=== PATIENT | female | born 1980 | race African-American/Black ===

== ENCOUNTER 2020-01-01 07:50 | Outpatient (CLI) | payer OTHER, SELFPAY ==
[2020-01-01 08:31] LABS: Eosinophils Absolute Auto 0.1 K/mm3 (0-0.3); Eosinophils Percent Auto 3.1 % (0-4.4); Hematocrit 40.7 % (37.0-47.0); Hemoglobin 13.8 g/dL (12.0-15.0); Immature Granulocyte Absolute 0.03 K/mm3 (0.00-0.031); Immature Granulocyte Percent A 0.7 % (0-0.5); Lymphocytes Absolute Auto 2.22 K/mm3 (0.9-3.2); Lymphocytes Percent Auto 53.6 % (18.3-44.2); Mean Corpuscular HGB Conc 33.9 g/dl (32-36); Mean Corpuscular Hemoglobin 31.7 pg (26-34); Mean Corpuscular Volume 93.3 fl (80-100); Mean Platelet Volume 9.8 fl (7.4-10.4); Monocytes Absolute Auto 0.3 K/mm3 (0.1-0.6); Monocytes Percent Auto 7.7 % (2.6-8.5); Neutrophils Absolute Auto 1.4 K/mm3 (1.3-6.7); Neutrophils Percent Auto 33.9 % (45.5-73.1); Platelet Count Result 244 k/mm3 (150-375); Red Blood Count 4.36 M/mm3 (4.2-5.4); Red Cell Distribution Width 13.3 % (11.5-14.5); White Blood Count 4.1 K/mm3 (4.5-10.0)
[2020-01-01 08:34] LABS: Add Urine Microscopic? YES; Appearance Urine Clear (Clear); Bilirubin Urine Negative (Negative); Blood Urine Negative (Negative); Color Urine Yellow (Yellow); Glucose Urine UA Negative (Negative); Ketones Urine Trace mg/dL (Negative); Leukocyte Esterase Ur Negative LEU/UL (NEGATIVE); Mucus Urine Heavy /lpf; Nitrate Urine Negative (Negative); Protein Urine Negative (Negative); RBC Urine 0-2 /hpf (0-2); Specific Grav Ur 1.029 (1.001-1.035); Squamous Epithelial Cell Urine Many /hpf (Few); WBC Urine 0-3 /hpf (0-3)
[2020-01-01 08:53] LABS: Alanine Aminotransferase 12 U/L (4-35); Albumin Level 4.4 g/dL (3.5-5.1); Alkaline Phosphatase 49 U/L (38-126); Aspartate Amino Transferase 23 U/L (14-36); Bilirubin,Total 0.6 mg/dL (0.2-1.3); Blood Urea Nitrogen 10 mg/dL (7-17); Calcium 9.9 mg/dL (8.4-10.2); Carbon Dioxide 26 mmol/L (22-30); Chloride 107 mmol/L (98-107); Cholesterol 233 mg/dL (0-200); Estimated Glomerular Filt Rate > 60; Glucose 97 mg/dL (65-105); HDL Direct 52 mg/dL; Sodium 138 mmol/L (137-145); Triglycerides 48 mg/dL (<150); Uric Acid 3.9 mg/dL (2.5-7.5)
[2020-01-01 08:54] LABS: LDL Cholesterol Direct 150 mg/dL
[2020-01-01 09:00] LABS: Erythrocyte Sedimentation Rate 16 mm/hr (0-20)
[2020-01-01 09:05] LABS: Complement C3 97 mg/dL (88-165); Immunoglobulin A 102 mg/dL (70-400); Rheumatoid Factor < 8.6 IU/ML (<12)
[2020-01-01 09:12] LABS: Thyroid Stimulating Hormone 0.488 uIU/mL (0.465-4.680)
[2020-01-01 09:17] LABS: CRP < 0.5 mg/dL (<1.0); Creatine Kinase 125 U/L (30-135)
[2020-01-01 09:45] LABS: Free T4 Free Thyroxine 0.95 ng/mL (0.78-2.19); Vitamin D 25 Hydroxy 47.8 ng/mL
[2020-01-01 10:00] LABS: Hepatitis B Surface Antigen Negative (Negative)
[2020-01-01 10:13] LABS: Total Triiodothyronine (T3) 1.09 NG/ML (0.97-1.69)
[2020-01-01 10:17] LABS: Hepatitis C Virus Antibody Negative (Negative)
[2020-01-04 01:37] LABS: Anti Cyclic Citrullinated Pept <16 Units (<20); Complement Total CH50 54 U/mL (31-60); Histone Antibody <1.0 U (<1.0); Scleroderma 70 Antibody <1.0
[2020-01-04 08:42] LABS: Chromatin Antibody <1.0; RNP Antibodies <1.0; SS-A <1.0; SS-B <1.0
== END 2020-01-01 07:51 | disposition home or self-care (01) ==
PROVIDERS: PCP Family Medicine; Visit Provider Family Medicine
DX: Z00.00 Encounter for general adult medical examination without abnormal findings (principal); M25.50 Pain in unspecified joint; Z13.0 Encounter for screening for diseases of the blood and blood-forming organs and certain disorders involving the immune mechanism; Z13.6 Encounter for screening for cardiovascular disorders; Z13.220 Encounter for screening for lipoid disorders; Z13.29 Encounter for screening for other suspected endocrine disorder; E55.9 Vitamin D deficiency, unspecified
CPT/HCPCS: 36415; 80053; 80061; 81001; 82306; 82550; 82784; 83516; 84439; 84443; 84480; 84550; 85025; 85652; 86038; 86140; 86160; 86162; 86200; 86235; 86430; 86803; 87340

== ENCOUNTER 2020-05-03 09:58 | Outpatient (CLI) | payer OTHER, SELFPAY ==
--- NOTE | ~2020-05-03 | XR_ITS ---
XR abdomen/kub 1V 05/03/2020 10:33 Indication: Generalized abdominal pain Procedure: Supine view of abdomen Comparison: No prior studies for comparison. Findings: Bowel gas pattern is nonobstructive. There are bilateral renal stones. Calcifications in th e pelvis are believed to be phleboliths. There are surgical clips in the pelvis, possibly from tubal ligation procedure. No acute osseous abnormality. Impression: 1: Bilateral nephrolithiasis. Reviewed, dictated and finalized at location B. Impression: 1: Bilateral nephrolithiasis.
[2020-05-03 10:40] LABS: Basophils Percent Auto 0.6 % (0.2-1.2); Eosinophils Absolute Auto 0.2 K/mm3 (0-0.3); Eosinophils Percent Auto 3.2 % (0-4.4); Hematocrit 40.4 % (37.0-47.0); Hemoglobin 13.6 g/dL (12.0-15.0); Lymphocytes Absolute Auto 2.88 K/mm3 (0.9-3.2); Lymphocytes Percent Auto 54.3 % (18.3-44.2); Mean Corpuscular HGB Conc 33.7 g/dl (32-36); Mean Corpuscular Hemoglobin 32.2 pg (26-34); Mean Corpuscular Volume 95.5 fl (80-100); Mean Platelet Volume 9.9 fl (7.4-10.4); Monocytes Absolute Auto 0.4 K/mm3 (0.1-0.6); Monocytes Percent Auto 6.8 % (2.6-8.5); Neutrophils Absolute Auto 1.9 K/mm3 (1.3-6.7); Neutrophils Percent Auto 35.1 % (45.5-73.1); Platelet Count Result 221 k/mm3 (150-375); Red Blood Count 4.23 M/mm3 (4.2-5.4); Red Cell Distribution Width 13.2 % (11.5-14.5); White Blood Count 5.3 K/mm3 (4.5-10.0)
[2020-05-03 10:51] LABS: Alanine Aminotransferase 9 U/L (4-35); Albumin Level 4.5 g/dL (3.5-5.1); Alkaline Phosphatase 43 U/L (38-126); Amylase 102 U/L (30-110); Anion Gap 6 mmol/L (8-16); Aspartate Amino Transferase 17 U/L (14-36); Bilirubin,Total 0.2 mg/dL (0.2-1.3); Blood Urea Nitrogen 9 mg/dL (7-17); Calcium 9.9 mg/dL (8.4-10.2); Carbon Dioxide 27 mmol/L (22-30); Chloride 105 mmol/L (98-107); Estimated Glomerular Filt Rate > 60; Glucose 97 mg/dL (65-105); Lipase 48 U/L (23-300); Potassium 4.3 mmol/L (3.4-5.0); Sodium 138 mmol/L (137-145)
== END 2020-05-03 09:59 | disposition home or self-care (01) ==
PROVIDERS: PCP Family Medicine; Visit Provider Nurse Practitioner
DX: R10.9 Unspecified abdominal pain (principal); R32 Unspecified urinary incontinence
CPT/HCPCS: 36415; 74018; 80053; 82150; 83690; 85025

== ENCOUNTER 2020-05-26 09:58 | Outpatient (CLI) | payer OTHER, SELFPAY ==
--- NOTE | ~2020-05-26 | CT_ITS ---
EXAMINATION: CT abdomen pelvis wo con DATE: 05/26/2020 11:21 INDICATION: Nephrolithiasis TECHNIQUE: Computed tomography (CT) of the abdomen and pelvis was performed without intravenous contr ast. The dose-length product was 169.66 mGy-cm. Automated exposure control and iterative reconstructi on technique were employed. COMPARISON: None. FINDINGS: Lung bases are unremarkable. Heart size normal. No significant pleural or pericardial effus ion. There is atherosclerosis of the aorta. Nonobstructive bowel gas pattern with moderate colonic fe nain loading. No renal stones or hydronephrosis. Bladder is unremarkable. The ureters are difficult to visualize due to lack of intraperitoneal fat and contrast. No definite ureteral stone is seen. The liver, spleen, pancreas, adrenal glands are unremarkable. Gallbladder is present. No free air. No acute osseous abnormality. IMPRESSION: 1. No acute abdominal abnormality. Reviewed, dictated and finalized at location A.
== END 2020-05-26 09:59 | disposition home or self-care (01) ==
PROVIDERS: PCP Family Medicine; Visit Provider Family Medicine
DX: N20.0 Calculus of kidney (principal)
CPT/HCPCS: 74176

== ENCOUNTER 2021-01-01 08:55 | Outpatient (CLI) | payer OTHER, SELFPAY ==
[2021-01-01 09:42] LABS: Basophils Percent Auto 0.4 % (0.2-1.2); Eosinophils Absolute Auto 0.2 K/mm3 (0-0.3); Eosinophils Percent Auto 2.4 % (0-4.4); Hematocrit 43.2 % (37.0-47.0); Hemoglobin 14.6 g/dL (12.0-15.0); Immature Granulocyte Absolute 0.01 K/mm3 (0.00-0.031); Immature Granulocyte Percent A 0.1 % (0-0.5); Lymphocytes Absolute Auto 3.87 K/mm3 (0.9-3.2); Lymphocytes Percent Auto 54.7 % (18.3-44.2); Mean Corpuscular HGB Conc 33.8 g/dl (32-36); Mean Corpuscular Hemoglobin 32.7 pg (26-34); Mean Corpuscular Volume 96.6 fl (80-100); Mean Platelet Volume 9.4 fl (7.4-10.4); Monocytes Absolute Auto 0.6 K/mm3 (0.1-0.6); Monocytes Percent Auto 7.9 % (2.6-8.5); Neutrophils Absolute Auto 2.4 K/mm3 (1.3-6.7); Neutrophils Percent Auto 34.5 % (45.5-73.1); Platelet Count Result 288 k/mm3 (150-375); Red Blood Count 4.47 M/mm3 (4.2-5.4); Red Cell Distribution Width 13.6 % (11.5-14.5); White Blood Count 7.1 K/mm3 (4.5-10.0)
[2021-01-01 10:42] LABS: Creatinine Urine 189.1 mg/dL
[2021-01-01 10:46] LABS: MALB Creatinine Ratio 3.5 mg/g (0-30); Microalbumin Urine Random 6.6 mg/L (0-16.7)
[2021-01-01 11:00] LABS: Free T4 Free Thyroxine 1.01 ng/mL (0.78-2.19); Vitamin D 25 Hydroxy 33.3 ng/mL
[2021-01-01 13:55] LABS: Alanine Aminotransferase 25 U/L (4-35); Albumin Level 4.6 g/dL (3.5-5.1); Alkaline Phosphatase 44 U/L (38-126); Anion Gap 8 mmol/L (8-16); Aspartate Amino Transferase 29 U/L (14-36); Bilirubin,Total 0.5 mg/dL (0.2-1.3); Blood Urea Nitrogen 14 mg/dL (7-17); Calcium 10.6 mg/dL (8.4-10.2); Carbon Dioxide 27 mmol/L (22-30); Chloride 107 mmol/L (98-107); Cholesterol 239 mg/dL (0-200); Estimated Glomerular Filt Rate > 60; Glucose 98 mg/dL (65-105); HDL Direct 47 mg/dL; Potassium 3.7 mmol/L (3.4-5.0); Sodium 142 mmol/L (137-145); Triglycerides 127 mg/dL (<150)
[2021-01-01 14:22] LABS: LDL Cholesterol Direct 153 mg/dL
[2021-01-01 14:35] LABS: Total Triiodothyronine (T3) 1.28 NG/ML (0.97-1.69)
== END 2021-01-01 08:56 | disposition home or self-care (01) ==
PROVIDERS: PCP Family Medicine; Visit Provider Nurse Practitioner
DX: Z00.00 Encounter for general adult medical examination without abnormal findings (principal); I10 Essential (primary) hypertension; E78.5 Hyperlipidemia, unspecified; Z13.0 Encounter for screening for diseases of the blood and blood-forming organs and certain disorders involving the immune mechanism; Z13.6 Encounter for screening for cardiovascular disorders; Z13.220 Encounter for screening for lipoid disorders; Z13.29 Encounter for screening for other suspected endocrine disorder; R80.9 Proteinuria, unspecified; E55.9 Vitamin D deficiency, unspecified
CPT/HCPCS: 36415; 80053; 80061; 82043; 82306; 84439; 84443; 84480; 85025

== ENCOUNTER 2021-09-29 01:28 | Day surgery (SDC) | payer OTHER, SELFPAY ==
[2021-09-18 10:07] VITALS: BMI 23.4
[2021-09-29 08:42] VITALS: BP 135/93; PULSE 66; RESP 18; TEMP 36.2; O2SAT 100; BMI 23.1
--- NOTE | 2021-09-29 08:49 | WPDGICN ---
Assessment and Plan Assessment and plan (1) Epigastric abdominal pain: Code(s): R10.13 - Epigastric pain Status: Acute Assessment and Plan: Patient with epigastric and substernal discomfort that consistent with dyspepsia and suspicious for acid reflux disease. Patient states this is ongoing is not help with current therapy. Currently not taking any acid suppression. She was treated previously for H pylori with no change in symptoms. (H pylori typically associated with ulcer disease and reverse associated with acid reflux disease.) (2) H. pylori infection: Code(s): A04.8 - Other specified bacterial intestinal infections Status: Acute Assessment and Plan: Patient gives a history of H pylori infection in the past. Apparently identified by breath testing. Plan is for EGD to assess for epigastric pain but also to documents current status of H pylori infection. GI Consult Note Consult date/time: 09/29/21 08:49 HPI: Chelsea Almanza is a 41 year old female Presents for EGD. Patient reports for 4 years she has had epigastric and substernal discomfort. Somewhat worse with spicy foods. She had several tests of her gallbladder blood test for liver of breath test suggested she had H pylori. In July she was treated with triple therapy to include PPI and 2 antibiotics. She apparently had previously tried antibiotics. She presents today to document resolution of H pylori therapy. Additionally she states that despite this therapy she continues to have substernal burning epigastric discomfort. She no longer takes PPI therapy. She had no specific improvement while taking these medications. Patient denies any bleeding. She denies any dysphagia. Family history is noncontributory. Review of Systems Review of Systems: All systems reviewed & are unremarkable except as noted in HPI and below PMFSH Social History Social History Years smoked: 17 Smoking status: Current every day smoker Tobacco type: cigarettes Alcohol intake: current Alcohol use details: 2x yearly Substance use: current Substance use type: marijuana Other substance usage details: daily Living arrangements: with family Spiritual care concerns: No Meds Home Medications and Allergies Home Medications Medication Instructions Recorded Confirmed Type amlodipine 10 mg PO DAILY 09/18/21 09/18/21 History aripiprazole 10 mg PO DAILY 09/18/21 09/18/21 History atorvastatin 40 mg PO DAILY 09/18/21 09/18/21 History cetirizine 10 mg PO DAILY 09/18/21 09/18/21 History hydroxyzine HCl 10 mg PO BID 09/18/21 09/18/21 History latanoprost 1 drp EACH EYE HS 09/18/21 09/18/21 History lisinopril 10 mg PO DAILY 09/18/21 09/18/21 History montelukast 10 mg PO DAILY 09/18/21 09/18/21 History timolol maleate 1 drp EACH EYE DAILY 09/18/21 09/18/21 History tramadol 50 mg PO TID 09/18/21 09/18/21 History vortioxetine [Trintellix] 20 mg PO DAILY 09/18/21 09/18/21 History Allergies Allergy/AdvReac Type Severity Reaction Status Date / Time ibuprofen Allergy Unknown Rash Verified 09/29/21 08:41 Vital Signs Vital Signs - 24 hr 09/29/21 08:42 Temperature 97.1 F L Pulse Rate 66 Respiratory Rate 18 Blood Pressure 135/93 H Pulse Oximetry 100 Exam Narrative: Physical exam reveals patient to be alert. Vital signs stable. HEENT exam is unremarkable. Patient is anicteric. Lungs are clear to auscultation and percussion. Heart is without murmur or extra sounds. Abdominal exam bowel sounds present soft nontender with no organomegaly.
[2021-09-29] MEDS: LACTATED RINGERS 1,000 ML 150 ML IV CONT (08:50)
[2021-09-29] MEDS: BENZOCAINE (*SP) 60 ML SPRAY CAN (HURRICAINE) 1 SPRAY MUCOUS MEM (09:21)
[2021-09-29 09:29] VITALS: BP 161/106; PULSE 80; RESP 22; O2SAT 96
[2021-09-29 09:39] VITALS: BP 153/100; PULSE 60; RESP 27; O2SAT 98
[2021-09-29 09:49] VITALS: BP 140/98; PULSE 63; RESP 18; O2SAT 98
== END 2021-09-29 09:52 | disposition home or self-care (01) ==
PROVIDERS: PCP Family Medicine; Visit Provider Internal Medicine Gastroenterology
PROC: 0DJ08ZZ Inspection of Upper Intestinal Tract, Via Natural or Artificial Opening Endoscopic (ICD-10-PCS; CPT 43235; principal; 2021-09-29 09:30)
DX: Z09 Encounter for follow-up examination after completed treatment for conditions other than malignant neoplasm (principal); A04.8 Other specified bacterial intestinal infections; R10.13 Epigastric pain; K21.9 Gastro-esophageal reflux disease without esophagitis; F17.210 Nicotine dependence, cigarettes, uncomplicated; F12.90 Cannabis use, unspecified, uncomplicated; Z86.19 Personal history of other infectious and parasitic diseases
CPT/HCPCS: 43239; 87081; J2001; J2704; J7120

== ENCOUNTER 2021-12-12 09:32 | Emergency (ER) | payer OTHER, SELFPAY ==
[2021-12-12] VITALS (15 sets, daily range): BP systolic 144–181; BP diastolic 91–123; PULSE 54–67; RESP 15–26; TEMP 37.5; O2SAT 99–100
--- NOTE | ~2021-12-12 | CT_ITS ---
EXAMINATION: CT brain wo con DATE: 12/12/2021 10:07 INDICATION: Headache. Dizziness. TECHNIQUE: Computed tomography (CT) of the head was performed without intravenous contrast. The mA wa s adjusted according to patient size. Iterative reconstruction technique was employed. The dose-lengt h product was 605.33 mGy-cm. COMPARISON: None FINDINGS: There is no intracranial hemorrhage, acute infarction, or abnormal intracranial mass lesion . The ventricles are normal in size. The orbits are normal. There is mild mucosal thickening in the e thmoid sinuses. The mastoid air cells are normal. IMPRESSION: 1. Normal brain. Reviewed, dictated and finalized at location A. IMPRESSION: 1. Normal brain.
--- NOTE | 2021-12-12 09:54 | ECG_ITS ---
Measurements Intervals [place] Rate: 57 P: 9 PA: 124 QRS: 6 QRSD: 86 T: 9 QT: 401 QTc: 393 Interpretive Statements SINUS BRADYCARDIA POSSIBLE RIGHT VENTRICULAR CONDUCTION DELAY [RSR (QR) IN V1/V2] NO PREVIOUS ECG AVAILABLE FOR COMPARISON Electronically Signed On 12-12-2021 12:51:59 CDT by Brant Gama M.D.
--- NOTE | 2021-12-12 10:02 | ED.GENADULT ---
HPI - General Adult General Chief complaint: Recheck/Abnormal Lab/Rx Stated complaint: high bp Time Seen by Provider: 12/12/21 09:51 Source: patient Mode of arrival: ambulatory Limitations: no limitations History of Present Illness HPI narrative: Patient is a 41-year-old female sent here from her PCPs clinic due to elevated blood pressure. Patient states that she has been having occasional dizziness and headache accompanied. Patient also states that she has been having eye floaters for the past few months, history of open-angle glaucoma and takes medications for it. Patient states that she needs to make an appointment with her dispute resolution analyst regarding the intermittent eye floaters. Patient currently denies any dizziness, headache or eye floaters at this time. Patient denies any speech abnormality, focal weakness or numbness, unsteady gait, chest pain, shortness of breath, abdominal pain, nausea, vomiting, diaphoresis, fever or chills. Related Data Home Medications Medication Instructions Recorded Confirmed amlodipine 10 mg PO DAILY 09/18/21 09/18/21 aripiprazole 10 mg PO DAILY 09/18/21 09/18/21 atorvastatin 40 mg PO DAILY 09/18/21 09/18/21 cetirizine 10 mg PO DAILY 09/18/21 09/18/21 hydroxyzine HCl 10 mg PO BID 09/18/21 09/18/21 latanoprost 1 drp EACH EYE HS 09/18/21 09/18/21 lisinopril 10 mg PO DAILY 09/18/21 09/18/21 montelukast 10 mg PO DAILY 09/18/21 09/18/21 timolol maleate 1 drp EACH EYE DAILY 09/18/21 09/18/21 tramadol 50 mg PO TID 09/18/21 09/18/21 vortioxetine [Trintellix] 20 mg PO DAILY 09/18/21 09/18/21 Allergies Allergy/AdvReac Type Severity Reaction Status Date / Time ibuprofen Allergy Unknown Rash Verified 12/12/21 09:44 Review of Systems Review of Systems: All systems reviewed & are unremarkable except as noted in HPI and below Constitutional: Constitutional: Denies body ache(s), Denies chills, Denies excessive sweating, Denies fatigue, Denies fever(s), Denies headache(s), Denies lethargy, Denies malaise, Denies weakness and Denies weight loss Eyes: Eyes: Denies blurry vision, Denies change in vision and Denies loss of vision ENT: Denies dizziness, Denies ear discharge, Denies headache(s), Denies lip swelling, Denies epistaxis, Denies nasal congestion, Denies neck pain, Denies throat swelling and Denies tongue swelling Cardiovascular: Cardiovascular: Denies chest pain, Denies chest pain at rest, Denies chest pain with activity, Denies diaphoresis, Denies rapid heart rate, Denies edema, Denies irregular heart rhythm, Denies lightheadedness, Denies palpitations, Denies dyspnea and Denies dyspnea on exertion Respiratory: Respiratory: Denies chest congestion, Denies cough, Denies hemoptysis, Denies dyspnea and Denies dyspnea on exertion Gastrointestinal: Gastrointestinal: Denies abdominal pain, Denies melena, Denies hematochezia, Denies diarrhea, Denies nausea, Denies vomiting and Denies hematemesis Musculoskeletal: Musculoskeletal: Denies abnormal gait, Denies deformity, Denies joint swelling, Denies limited range of motion, Denies neck pain and Denies numbness Neurologic: Denies Abnormal speech present, Denies abnormal gait, Denies confusion, Denies focal weakness, Denies loss of vision, Denies numbness, Denies Sensory deficit (Neuro) and Denies weakness Psychiatric: Psychiatric: Denies confusion, Denies depression, Denies auditory hallucinations, Denies homicidal ideation and Denies suicidal ideation Endocrine: Endocrine: Denies cold intolerance, Denies excessive sweating, Denies fatigue, Denies heat intolerance and Denies palpitations Hematologic/Lymphatic: Hematologic/Lymphatic: Denies easy bleeding and Denies easy bruising Allergic/Immunologic: Allergic/Immunologic: Denies lip swelling, Denies throat swelling and Denies tongue swelling [facility] Social History Social History Years smoked: 17 Smoking status: Current every day smoker Tobacco type: cigare
[2021-12-12] MEDS: LABETALOL HCL INJ 100 MG/20 ML VIAL 20 MG IV PUSH (10:15)
[2021-12-12 10:30] LABS: Basophils Percent Auto 0.7 % (0.2-1.2); Eosinophils Absolute Auto 0.2 K/mm3 (0-0.3); Hematocrit 37.6 % (37.0-47.0); Hemoglobin 12.8 g/dL (12.0-15.0); Immature Granulocyte Absolute 0.01 K/mm3 (0.00-0.031); Immature Granulocyte Percent A 0.2 % (0-0.5); Lymphocytes Absolute Auto 3.16 K/mm3 (0.9-3.2); Lymphocytes Percent Auto 55.2 % (18.3-44.2); Mean Corpuscular Hemoglobin 32.2 pg (26-34); Mean Corpuscular Volume 94.7 fl (80-100); Mean Platelet Volume 9.4 fl (7.4-10.4); Monocytes Absolute Auto 0.4 K/mm3 (0.1-0.6); Monocytes Percent Auto 6.5 % (2.6-8.5); Neutrophils Percent Auto 34.4 % (45.5-73.1); Platelet Count Result 284 k/mm3 (150-375); Red Blood Count 3.97 M/mm3 (4.2-5.4); Red Cell Distribution Width 13.1 % (11.5-14.5); White Blood Count 5.7 K/mm3 (4.5-10.0)
[2021-12-12 10:39] LABS: Anion Gap 7 mmol/L (8-16); Blood Urea Nitrogen 9 mg/dL (7-17); Calcium 9.7 mg/dL (8.4-10.2); Carbon Dioxide 24 mmol/L (22-30); Chloride 110 mmol/L (98-107); Estimated CRCL calculation 54 ml/min; Estimated Glomerular Filt Rate > 60; Glucose 96 mg/dL (65-110); Sodium 141 mmol/L (137-145)
[2021-12-12 10:51] LABS: Troponin I < 0.012 ng/mL (0.000-0.034)
[2021-12-12] MEDS: hydrALAZINE HCL 20 MG/ML VIAL 10 MG IV PUSH (11:27)
== END 2021-12-12 13:05 | disposition home or self-care (01) ==
PROVIDERS: Emergency Provider Emergency Medicine; PCP Family Medicine
DX: I16.0 Hypertensive urgency (principal); H40.10X0 Unspecified open-angle glaucoma, stage unspecified; E78.5 Hyperlipidemia, unspecified; I10 Essential (primary) hypertension; F17.210 Nicotine dependence, cigarettes, uncomplicated; R00.1 Bradycardia, unspecified; R94.31 Abnormal electrocardiogram [ECG] [EKG]
CPT/HCPCS: 36415; 70450; 80048; 84484; 85025; 93005; 96374; 99284; J0360

== ENCOUNTER 2022-01-28 10:21 | Outpatient (CLI) | payer OTHER, SELFPAY ==
--- NOTE | 2022-01-28 13:18 | WPDPFTINT ---
PFT Procedure Performed PFT Procedure Performed Plethysmography (Lung Vol) Diffusing Cap (DLCO) Flow Vol Loop Spirometry w/o Bronchodil PFT Interpretation This is a pulmonary function test with spirometry, plethysmography and diffusing capacity. The test was performed and results interpreted in accordance with the 2019 and 2005 ATS/ERS Task Force guidelines respectively using the Global Lung Function Initiative-2012 reference equations. Patient demonstrated good effort and cooperation. Reproducibility criteria were met. The quality of the spirometry maneuver was Grade A. Findings: Spirometry: The contour the inspiratory and expiratory flow tracing are normal. The FVC is 2.95 L, 98% predicted. The FEV1 is 2.31 L, 93% predicted. The FEV1: FVC ratio 78%. Plethysmography: The total lung capacity is 4.44 L, 103% predicted. The functional residual capacity is 2.88 L, 117% predicted. The residual volume is 1.49 L, 102% predicted. Diffusion capacity: The diffusing capacity unadjusted for hemoglobin and carboxyhemoglobin is 16.3, 70% predicted. The diffusing capacity adjusted for alveolar volume is 4.18, 88% predicted. Impression: The spirometry is normal without evidence of an obstructive abnormality. The lung volumes are normal. The diffusing capacity unadjusted for hemoglobin is mildly decreased and normalizes when adjusted for alveolar volume. There are no prior studies for comparison
== END 2022-01-28 10:22 | disposition home or self-care (01) ==
LOC: ANHPFT 10:22
PROVIDERS: PCP Family Medicine; Visit Provider Family Medicine
DX: J45.909 Unspecified asthma, uncomplicated (principal)
CPT/HCPCS: 94060; 94726; 94729

== ENCOUNTER 2022-08-16 14:30 | Emergency (ER) | payer OTHER, SELFPAY ==
--- NOTE | ~2022-08-16 | CT_ITS ---
EXAMINATION: CT abdomen pelvis wo con DATE: 08/16/2022 17:24 INDICATION: R/O Kidney stone TECHNIQUE: Computed tomography (CT) of the abdomen and pelvis was performed without intravenous contr ast. Automated exposure control and iterative reconstruction technique were employed. The dose-length product was 176.09 mGy-cm. COMPARISON: 05/26/2020. FINDINGS: Lower thorax: Unremarkable Liver: Normal. Biliary/Gallbladder: Gallbladder is normal. No bile duct dilation. Pancreas: No mass or duct dilation. Spleen: Normal. Adrenals:No mass. Kidneys: No mass, stone, or hydronephrosis. Ureters very difficult to definitively locate throughout their course. GI tract: No small or large bowel dilation. Normal appendix. Mesentery/Peritoneum: No ascites, mass, or free air. Retroperitoneum: No mass. Atherosclerotic abdominal aortic and/or arterial calcifications. Pelvis: Pelvic organs are within normal limits. Bilateral tubal ligation. Multiple pelvic phleboliths . Two adjacent 2-3 mm calcifications in the right upper pelvis (axial image 113/180) near the expecte d path of the ureter, where only one calcification was seen previously. Soft Tissues: Soft tissues and body wall unremarkable. Bones: No acute osseous finding. IMPRESSION: Limited examination, distal ureters very difficult to trace. New 2-3 mm calcification in the right up per pelvis in or near the expected pathway of the distal right ureter may represent a distal ureteral stone versus artifact from unrelated vascular calcification. No hydronephrosis. Reviewed, dictated and finalized at location K. MILL OPERATOR HELPER IMPRESSION: Limited examination, distal ureters very difficult to trace. New 2-3 mm calcifi cation in the right upper pelvis in or near the expected pathway of the distal right ureter may represent a distal ureteral stone versus artifact from unrelat ed vascular calcification. No hydronephrosis.
[2022-08-16 15:19] VITALS: BP 130/90; PULSE 67; RESP 18; TEMP 36.1; O2SAT 100
[2022-08-16 17:07] LABS: Add Urine Microscopic? NO; Appearance Urine Clear (Clear); Bilirubin Urine Negative (Negative); Blood Urine Negative (Negative); Color Urine Yellow (Yellow); Glucose Urine UA Negative (Negative); Ketones Urine Negative (Negative); Leukocyte Esterase Ur Negative LEU/UL (Negative); Nitrate Urine Negative (Negative); Protein Urine Negative (Negative); Urobilinogen Urine 0.2 mg/dL (<2.0)
--- NOTE | 2022-08-16 17:11 | ED.GENADULT ---
HPI - General Adult General Chief complaint: Urogenital-Female Stated complaint: back pain, vomiting Time Seen by Provider: 08/16/22 16:53 History of Present Illness HPI narrative: This is a 42-year-old female with a history of kidney stones present to the ED with chief complaint of flank pain. Patient notes that last several days she has had a pain in her right flank that wraps around into her stomach. It is sharp, comes and goes and feels like when she has had kidney stones in the past. Patient has does not have dysuria but has had urinary urgency frequency. Patient has had some nausea and vomiting but no diarrhea. Denies fever chills. No chest pain or difficulty breathing. Related Data Home Medications Medication Instructions Recorded Confirmed amlodipine 10 mg tablet 10 mg PO DAILY 09/18/21 09/18/21 aripiprazole 10 mg tablet 10 mg PO DAILY 09/18/21 09/18/21 atorvastatin 40 mg tablet 40 mg PO DAILY 09/18/21 09/18/21 cetirizine 10 mg tablet 10 mg PO DAILY 09/18/21 09/18/21 hydroxyzine HCl 10 mg tablet 10 mg PO BID 09/18/21 09/18/21 latanoprost 0.005 % eye drops 1 drp EACH EYE HS 09/18/21 09/18/21 lisinopril 10 mg tablet 10 mg PO DAILY 09/18/21 09/18/21 montelukast 10 mg tablet 10 mg PO DAILY 09/18/21 09/18/21 timolol maleate 0.5 % eye drops 1 drp EACH EYE DAILY 09/18/21 09/18/21 tramadol 50 mg tablet 50 mg PO TID 09/18/21 09/18/21 vortioxetine 20 mg tablet 20 mg PO DAILY 09/18/21 09/18/21 (Trintellix) Allergies Allergy/AdvReac Type Severity Reaction Status Date / Time ibuprofen Allergy Unknown Rash Verified 08/16/22 16:54 Review of Systems Review of Systems: All systems reviewed & are unremarkable except as noted in HPI and below PMFSH Past Medical History Medical History Anxiety Bipolar 2 disorder Hypertension Kidney stones Surgical History Surgical History H/O tubal ligation Social History Social History Years smoked: 17 Smoking status: Current every day smoker Tobacco type: cigarettes Alcohol intake: current Alcohol use details: 2x yearly Substance use: current Substance use type: marijuana Other substance usage details: daily Spiritual care concerns: No Exam Narrative: APPEARANCE: No apparent distress. Head: atraumatic. EYES: EOMI, NOSE: Atraumatic NECK: Trachea midline RESPIRATORY: No increased rate of breathing CARDIOVASCULAR: RRR, ABDOMINAL: abdomen is soft tender with no guarding or rebound. Patient has right CVA tenderness. MUSCULOSKELETAl: No obvious deformities NEURO: Alert. Moving 4/4 extremities SKIN:: Warm, dry. Normal color PSYCHIATRIC: Normal affect Course Vital Signs Vital signs: Vital Signs Temperature 97.0 F L 08/16/22 15:19 Pulse Rate 67 08/16/22 15:19 Respiratory Rate 18 08/16/22 15:19 Blood Pressure 130/90 08/16/22 15:19 Pulse Oximetry 100 08/16/22 15:19 Oxygen Delivery Room Air 08/16/22 15:19 Temperature 97.0 F L 08/16/22 15:19 Pulse Rate 67 08/16/22 15:19 Respiratory Rate 18 08/16/22 15:19 Blood Pressure 130/90 08/16/22 15:19 Pulse Oximetry 100 08/16/22 15:19 Oxygen Delivery Room Air 08/16/22 15:19 Medical Decision Making MDM Narrative Medical decision making narrative: This is a 42-year-old presenting with right-sided flank pain. Differential includes pyelonephritis, kidney stone, musculoskeletal pain. Lab work, urinalysis and CT abdomen pelvis have been ordered. Patient has been given pain control and antiemetics. Laboratory studies were within acceptable limits. Urinalysis did not indicate infection. CT abdomen pelvis was a poor study but possibly showed a 2-3 mm stone in the expected path of the ureter. Given the patient's clinical presentation is very consistent with a kidney stone and she has history of kidne
[2022-08-16 17:46] LABS: Basophils Percent Auto 0.5 % (0.2-1.2); Eosinophils Absolute Auto 0.1 K/mm3 (0-0.3); Eosinophils Percent Auto 2.4 % (0-4.4); Hematocrit 38.6 % (37.0-47.0); Hemoglobin 12.9 g/dL (12.0-15.0); Lymphocytes Absolute Auto 3.19 K/mm3 (0.9-3.2); Lymphocytes Percent Auto 54.8 % (18.3-44.2); Mean Corpuscular HGB Conc 33.4 g/dl (32-36); Mean Corpuscular Hemoglobin 31.5 pg (26-34); Mean Corpuscular Volume 94.1 fl (80-100); Monocytes Absolute Auto 0.4 K/mm3 (0.1-0.6); Monocytes Percent Auto 6.9 % (2.6-8.5); Neutrophils Absolute Auto 2.1 K/mm3 (1.3-6.7); Neutrophils Percent Auto 35.4 % (45.5-73.1); Platelet Count Result 262 k/mm3 (150-375); Red Cell Distribution Width 13.2 % (11.5-14.5); White Blood Count 5.8 K/mm3 (4.5-10.0)
[2022-08-16] MEDS: SODIUM CHLORIDE 0.9% IV 1,000 ML 999 ML IV CONT (17:47)
[2022-08-16] MEDS: ONDANSETRON INJ 4 MG/2 ML VIAL 8 MG IV PUSH (17:47)
[2022-08-16] MEDS: HYDROcodone/acetaminophen (*CRX) 5-325 MG TABLET 2 TAB PO (17:48)
[2022-08-16 18:02] LABS: Anion Gap 8 mmol/L (8-16); Blood Urea Nitrogen 7 mg/dL (7-17); Calcium 9.6 mg/dL (8.4-10.2); Carbon Dioxide 25 mmol/L (22-30); Chloride 104 mmol/L (98-107); Estimated CRCL calculation 65 ml/min; Estimated Glomerular Filt Rate > 60; Glucose 95 mg/dL (65-110); Magnesium 1.9 mg/dL (1.6-2.3); Potassium 3.5 mmol/L (3.4-5.0); Sodium 137 mmol/L (137-145)
== END 2022-08-16 19:02 | disposition home or self-care (01) ==
PROVIDERS: Emergency Provider Emergency Medicine; PCP Family Medicine
DX: N20.0 Calculus of kidney (principal); I10 Essential (primary) hypertension; F41.9 Anxiety disorder, unspecified; F31.9 Bipolar disorder, unspecified; F17.210 Nicotine dependence, cigarettes, uncomplicated; F12.90 Cannabis use, unspecified, uncomplicated
CPT/HCPCS: 36415; 74176; 80048; 81003; 81025; 83735; 85025; 96374; 99284; A9270; J2405; J7030

== ENCOUNTER 2022-09-17 07:27 | Outpatient (CLI) | payer OTHER, SELFPAY ==
--- NOTE | ~2022-09-17 | CT_ITS ---
Noncontrast CT scan of the lumbar spine CLINICAL HISTORY: Back pain TECHNIQUE: Axial noncontrast imaging of the lumbar spine was performed. Sagittal and coronal reformat bronson images were constructed. Dose reduction technique was used on this scan by utilizing automated ex posure control and iterative reconstruction technique. FINDINGS: No fracture or subluxation of the lumbar spine identified. Vertebral bodies maintain normal height and alignment. Intervertebral disc spaces are well preserved. At L1-L2, there is no disc bulge or herniation. No spinal canal stenosis or neural foraminal narrowin g. At L2-L3, there is no disc bulge or herniation. No spinal canal stenosis or neural foraminal narrowin g. At L3-L4, there is minimal disc bulge. No spinal canal stenosis or neural foraminal narrowing. At L4-L5, there is no disc bulge or herniation. There is minimal ligamentum flavum hypertrophy. No sp inal canal stenosis or neural foraminal narrowing. At L5-S1, there is no disc bulge or herniation. No spinal canal stenosis or neural foraminal narrowin g. Paravertebral soft tissues are unremarkable. IMPRESSION: Minimal degenerative changes, as detailed above. Reviewed, dictated and finalized at location M. OLOGY MANAGER
== END 2022-09-17 07:28 | disposition home or self-care (01) ==
PROVIDERS: PCP Family Medicine; Visit Provider Nurse Practitioner Adult Health
DX: M54.50 Low back pain, unspecified (principal); R29.898 Other symptoms and signs involving the musculoskeletal system
CPT/HCPCS: 72131

== ENCOUNTER 2023-11-08 10:40 | Outpatient (CLI) | payer OTHER, SELFPAY ==
[2023-11-08 19:09] LABS: Free T4 Free Thyroxine 0.72 ng/mL (0.78-2.19)
[2023-11-08 19:11] LABS: Basophils Absolute Auto 0.1 K/mm3 (0.0-0.1); Basophils Percent Auto 0.9 % (0.2-1.2); Eosinophils Absolute Auto 0.1 K/mm3 (0-0.3); Eosinophils Percent Auto 1.7 % (0-4.4); Hematocrit 42.6 % (37.0-47.0); Hemoglobin 13.3 g/dL (12.0-15.0); Immature Granulocyte Absolute 0.02 K/mm3 (0.00-0.031); Immature Granulocyte Percent A 0.3 % (0-0.5); Lymphocytes Absolute Auto 3.31 K/mm3 (0.9-3.2); Lymphocytes Percent Auto 52.4 % (18.3-44.2); Mean Corpuscular HGB Conc 31.2 g/dl (32-36); Mean Corpuscular Volume 99.3 fl (80-100); Mean Platelet Volume 9.9 fl (7.4-10.4); Monocytes Absolute Auto 0.3 K/mm3 (0.1-0.6); Monocytes Percent Auto 4.1 % (2.6-8.5); Neutrophils Absolute Auto 2.6 K/mm3 (1.3-6.7); Neutrophils Percent Auto 40.6 % (45.5-73.1); Platelet Count Result 268 k/mm3 (150-375); Red Blood Count 4.29 M/mm3 (4.2-5.4); White Blood Count 6.3 K/mm3 (4.5-10.0)
[2023-11-08 19:57] LABS: Alanine Aminotransferase 14 U/L (6-35); Albumin Level 4.3 g/dL (3.5-5.1); Alkaline Phosphatase 48 U/L (38-126); Anion Gap 5 mmol/L (8-16); Aspartate Amino Transferase 49 U/L (14-36); Bilirubin,Total 0.3 mg/dL (0.2-1.3); Blood Urea Nitrogen 12 mg/dL (7-17); Calcium 10.3 mg/dL (8.4-10.2); Carbon Dioxide 24 mmol/L (22-30); Chloride 110 mmol/L (98-107); Cholesterol 222 mg/dL (0-200); Estimated Glomerular Filt Rate > 60; Glucose 94 mg/dL (65-110); HDL Direct 58 mg/dL; Potassium 4.3 mmol/L (3.4-5.0); Sodium 139 mmol/L (137-145); Triglycerides 49 mg/dL (<150)
[2023-11-08 20:09] LABS: LDL Cholesterol Direct 145 mg/dL
== END 2023-11-08 10:41 | disposition home or self-care (01) ==
LOC: ANHWCLAB 10:41
PROVIDERS: Registered Nurse; PCP Family Medicine; Visit Provider Family Medicine
DX: E78.5 Hyperlipidemia, unspecified (principal); I10 Essential (primary) hypertension; R53.83 Other fatigue
CPT/HCPCS: 36415; 80053; 80061; 84439; 84443; 84480; 85025

== ENCOUNTER 2024-01-17 09:58 | Outpatient (CLI) | payer OTHER, SELFPAY ==
[2024-01-17 12:55] LABS: Basophils Percent Auto 0.6 % (0.2-1.2); Eosinophils Absolute Auto 0.1 K/mm3 (0-0.3); Eosinophils Percent Auto 1.9 % (0-4.4); Hematocrit 40.9 % (37.0-47.0); Hemoglobin 13.2 g/dL (12.0-15.0); Immature Granulocyte Absolute 0.01 K/mm3 (0.00-0.031); Immature Granulocyte Percent A 0.2 % (0-0.5); Lymphocytes Absolute Auto 3.94 K/mm3 (0.9-3.2); Lymphocytes Percent Auto 61.8 % (18.3-44.2); Mean Corpuscular HGB Conc 32.3 g/dl (32-36); Mean Corpuscular Hemoglobin 32.4 pg (26-34); Mean Corpuscular Volume 100.2 fl (80-100); Mean Platelet Volume 10.1 fl (7.4-10.4); Monocytes Absolute Auto 0.4 K/mm3 (0.1-0.6); Monocytes Percent Auto 5.8 % (2.6-8.5); Neutrophils Absolute Auto 1.9 K/mm3 (1.3-6.7); Neutrophils Percent Auto 29.7 % (45.5-73.1); Platelet Count Result 283 k/mm3 (150-375); Red Blood Count 4.08 M/mm3 (4.2-5.4); Red Cell Distribution Width 13.6 % (11.5-14.5); White Blood Count 6.4 K/mm3 (4.5-10.0)
[2024-01-17 13:40] LABS: Total Triiodothyronine (T3) 1.33 NG/ML (0.97-1.69)
== END 2024-01-17 09:59 | disposition home or self-care (01) ==
LOC: ANHWCLAB 10:00
PROVIDERS: PCP Family Medicine
DX: D64.9 Anemia, unspecified (principal); I10 Essential (primary) hypertension
CPT/HCPCS: 36415; 84443; 84480; 85025

== ENCOUNTER 2025-04-04 17:12 | Outpatient (CLI) | payer OTHER, SELFPAY ==
--- NOTE | ~2025-04-04 | XR_ITS ---
XR abdomen/kub 1V 04/04/2025 17:31 INDICATION: Renal stone TECHNIQUE: KUB COMPARISON: 05/03/2020 FINDINGS: Bowel gas pattern is normal. There is no evidence of free air, mass, organomegaly, ascites or obstruction. No abnormal calculi are seen. The bones appear intact. There are surgical clips. There is a stable clip in the right pelvis. There is been migration of a clip into the right upper abdomen from the pelvis since prior examination. IMPRESSION: 1: No acute abdominal abnormality identified. 2: Interval migration of surgical clip from the pelvis into the right mid abdomen since 05/03/2020. Reviewed, dictated and finalized at location A. IMPRESSION: 1: No acute abdominal abnormality identified. 2: Interval migration of surgical clip from the pelvis into the right mid abdom en since 05/03/2020.
--- OUTSIDE RECORDS SUMMARY | 2025-04-04 17:17 | XMS_ITS | Encounter Summary ---
Author Organization [facility] Healthcare Address [address] [place] [address] Care Team Providers Care Medical Coder Name Role Phone Johan Rodriguez MD Unavailable [phone] Johan Rodriguez MD Primary Care Provider [phone] Encounter Details Date Type Department Care Team (Late st Contact Info) Description 03/27/2025 Results Follow-Up [facility] Obstetrical Gynecology [address] [id number] Ivett Ba MD [address] [id number] RPR Blood, Hepatitis C antibody Blood, Hepatitis B Surface Antigen Blood, Additional followed-up results: 3 Social History Tobacco Use Types Packs/Day Years Used Date Smoking Tobacco: Every Day Cigarettes 0.5 20 Alcohol Use Standard Drinks/Week Comments Never 0 (1 standard drink = 0.6 oz pur e alcohol) Personal Safety Answer Date Recorded Have you ever been in or are you currently in a harmful physical or emotional relationship or is someone making you feel afraid or unsafe? Denies 03/07/2025 Comments No Sex and Gender Information Value Date Recorded Sex Assigned at Not on file Legal Sex Female 6:16 PM MEDICAL ASSISTANT OB GYN Gender Identity Not on file Sexual Orientation Not on file documented as of this encounter Plan of Treatment Upcoming Encounters Date Type Department Care Team (Late st Contact Info) Description 04/18/2025 12:00 PM CDT Hospital Encounter [facility] [address] [place] [address] Giuseppe Nathan MD [address] [place] [address] [place] [id number] 04/18/2025 12:00 PM CDT - 04/18/2025 12:30 PM CDT Surgery [facility] [address] [place] [address] Giuseppe Nathan MD [address] [place] [address] [place] [id number] COLONOSCOPY Scheduled Procedures Name Priority Associated Diagnoses Date/Ti me COLONOSCOPY Screening for colon cancer 04/18/2025 12:00 PM CDT documented as of this encounter Visit Diagnoses Not on filedocumented in this encounter Care Teams Medical Coder Relationship Specialty Start Date End Date Johan Rodriguez MD [address] [place] [address] [place] [id number] PCP - General Family Medicine 12/09/23 Johan Rodriguez MD Family Medicine 12/10/22 documented as of this encounter
--- OUTSIDE RECORDS SUMMARY | 2025-04-04 17:17 | XMS_ITS | Clinical Summary ---
Author Organization [facility] Building Address [address] [place] [address] Care Team Providers Care Electrical Engineering Drafting Officer Name Role Phone Johan Rodriguez MD Unavailable [phone] Johan Rodriguez MD Primary Care Provider [phone] Allergies Active Allergy Reactions Criticality Noted Date Comments Ibuprofen Other (See comments) High 02/05/2015 Causes gi bleed Causes gi bleed Causes gi bleed Causes gi bleed Ibuprofen Other (See comments) Low 11/25/2015 Bleeding per pt Medications hydrOXYzine (ATARAX) 10 mg tablet Take 1 tablet (10 mg total) by mouth 2 (two) times a day as needed 12/26/19 23 Active metoprolol tartrate (LOPRESSOR) 25 mg immediate release tablet Take 1 tablet (25 mg total) by mouth 2 (two) times a day 12/24/19 23 Active triamcinolone (KENALOG) 0.1 % cream Apply topically Acti ve losartan (COZAAR) 100 mg tablet Take 1 tablet (100 mg total) by mouth daily 11/20/19 23 Active amLODIPine (NORVASC) 10 mg tablet amlodipine 10 mg tablet 08/16/18 70 Active cetirizine (ZyrTEC) 10 mg tablet Take 1 tablet (10 mg total) by mouth daily 11/20/19 23 Active fluticasone propionate (FLONASE) 50 mcg/actuation nasal spray SHAKE LIQUID AND USE 1 TO 2 SPRAYS IN EACH NOSTRIL EVERY DAY NEEDED 11/20/[address] (PROTONIX) 20 mg EC tablet 12/17/19 23 Active timolol (TIMOPTIC) 0.5 % ophthalmic solution INSTILL 1 DROP IN BOTH EYES EVERY MORNING 11/20/19 23 Active latanoprost (XALATAN) 0.005 % ophthalmic solution INSTILL 1 DROP IN BOTH EYES EVERY NIGHT AT BEDTIME 09/14/19 24 Active PARoxetine (PAXIL) 20 mg tablet Take 1 tablet (20 mg total) by mouth daily 11/12/19 24 Active albuterol HFA (PROVENTIL HFA,VENTOLIN HFA,PROAIR HFA) 90 mcg/actuation inhaler INHALE 2 PUFFS BY MOUTH EVERY 4 TO 6 HOURS FOR SHORTNESS OF BREATH 01/17/20 24 Active dorzolamide-katherine oloL (COSOPT) 22.3-6.8 mg/mL ophthalmic solution 1 drop 2 (two) times a day 01/16/20 24 Active lamoTRIgine (LaMICtal) 100 mg tablet Take 1 tablet (100 mg total) by mouth nightly at bedtime 01/19/20 24 Active OLANZapine (ZyPREXA) 10 mg tablet Take 1 tablet (10 mg total) by mouth nightly at bedtime 01/19/20 24 Active Symbicort 160-4.5 mcg/actuation inhaler Inhale 2 puffs 2 (two) times a day 02/15/20 24 Active fluconazole (DIFLUCAN) 100 mg tablet 02/27/20 24 Active lamoTRIgine (LaMICtal) 150 mg tablet Take 1 tablet (150 mg total) by mouth every morning 02/28/20 24 Active OLANZapine (ZyPREXA) 5 mg tablet 03/16/20 24 Active tranexamic acid (LYSTEDA) 650 mg tabletIndicatio ns:Heavy menstrual bleeding Take 2 tablets (1,300 mg total) by mouth 3 (three) times a day X 5 days of her period 30 tablet 06/01/20 24 Active Additional Information Patient not taking.Reported on 03/26/2025 mirtazapine (REMERON) 15 mg tablet Take 1 tablet (15 mg total) by mouth nightly at bedtime 11/14/19 25 Active spironolactone (ALDACTONE) 25 mg tablet Take 1 tablet (25 mg total) by mouth daily 30 tablet 11 11/28/19 25 026 Active traMADoL (ULTRAM) 50 mg tablet Take 1 tablet (50 mg total) by mouth every 6 (six) hours 20 tablet 03/08/20 25 Active cyclobenzaprine (FLEXERIL) 10 mg tablet Take 1 tablet (10 mg total) by mouth 3 (three) times a day as needed for muscle spasms 30 tablet 03/08/20 25 Active predniSONE (DELTASONE) 10 mg tablet Take 5 tablets oral daily for 2 days then 4 tablets daily for 2 days then 3 tablets daily for 2 days then 2 tablets daily for 2 days then 1 tablet daily for 2 days then stop. 32 tablet 03/08/20 25 Active Additional Information Patient not taking.Reported on 03/26/2025 atorvastatin (LIPITOR) 10 mg tablet Take 1 tablet (10 mg total) by mouth daily 02/28/20 25 Active cyproheptadine (PERIACTIN) 0.4 mg/mL syrup TAKE 2.5 ML THREE TIMES DAILY BY MOUTH NEEDED FOR 30 DAYS 03/07/20 25 Active cyproheptadine (PERIACTIN) 4 mg tablet 02/28/20 25 Active HYDROcodone-torey taminophen (NORCO) 5-325 mg per tablet TAKE 1 TABLET BY MOUTH EVERY 6 TO 8 HOURS NEEDED 03/22/20 25 Active metroNIDAZOLE (FLAGYL) 500 mg tablet TAKE 1 TABLET BY MOUTH TWICE DAILY. AVOID ALCOHOL DURING AND 3 DAYS AFTER TREATMENT 03/23/20 25 Active naproxen (NAPROSYN) 500 mg tablet Take 1 tablet (500 mg total) by mouth 3 (three) times a day 01/31/20 25 Active nicotine (NICODERM CQ) 21 mg 03/01/20 25 Active nitrofurantoin monohydrate (MACROBID) 100 mg capsule Take 1 capsule (100 mg total) by mouth 2 (two) times a day 03/20/20 25 Active ondansetron (ZOFRAN) 4 mg tablet TAKE 1 TABLET EVERY 6-8 HOURS NEEDED 03/01/20 25 Active mirtazapine (REMERON) 30 mg tablet Take 1 tablet (30 mg total) by mouth nightly at bedtime 02/28/20 25 Active medroxyPROGESTE Dinh (Depo-Provera) 150 mg/mL injection Inject 1 mL (150 mg total) into the muscle as instructed every 3 (three) months 1 mL 3 03/26/20 25 Active ondansetron (ZOFRAN) 4 mg tabletIndicatio ns:Nausea and vomiting, unspecified vomiting type Take 1 tablet (4 mg) total 30 minutes before starting colonoscopy prep. Use the 2nd tablet as needed for nausea and vomiting. 2 tablet 03/29/20 25 Active traMADoL (ULTRAM) 50 mg tablet Take 1 tablet (50 mg total) by mouth 2 (two) times a day 12/26/19 025 Discontinu ed(Alterna te therapy) medroxyPROGESTE Dinh (Depo-Provera) 150 mg/mL injection Inject 1 mL (150 mg total) into the muscle as instructed every 3 (three) months 1 mL 3 07/05/20 24 025 Discontinu ed(Reorder ) polyethylene glycol (GoLYTELY) 236-22.74-6.74 -5.86 gram solutionIndicat ions:Screening for colon cancer Take 4,000 mL by mouth once for 1 dose 4000 mL 03/29/20 25 025 Hospital, Clinic, or Other Facility Administered Medication Ordered Dose Route Frequency Start Date End Date Status medroxyPROGESTERone (DEPO-PROVERA) 150 mg/mL injection 150 mgIndications:Depo- Provera contraceptive status 150 mg IM During hospitalization 03/16/2025 Ended Active Problems Problem Noted Date Diagnosed Date Screening for colon cancer 03/29/2025 Hypertension 02/01/2023 Depression 02/01/2023 Near syncope 02/02/2019 12/21/2022 Ventricular premature depolarization 05/10/2017 12/21/2022 Asthma 11/25/2015 12/21/2022 Chest pain 11/25/2015 12/21/2022 Chronic obstructive pulmonary disease 11/25/2015 12/21/2022 Hypercholesterolemia 11/25/2015 12/21/2022 Resolved Problems Problem Noted Date Diagnosed Date Resolved Date Routine general medical exam ination at health care facility 02/01/2023 10/09/2023 Encounters Date Type Department Care Team Description 03/30/2025 Telephone [facility] Medical [facility] Cardiology [address] [facility] [address] [facility] [place] [address] Adam Toscano MD 03/29/2025 Orders Only [facility] Gastroenterology at [address] [place] [phone] Giuseppe Nathan MD Screening for colon cancer (Primary Dx); Nausea and vomiting, unspecified vomiting type 03/27/2025 Results Follow-Up [facility] Obstetrical Gynecology [address] [place] [phone] Ivett Ba MD RPR Blood, Hepatitis C antibody Blood, Hepatitis B Surface Antigen Blood, Additional followed-up results: 3 03/26/2025 12:11 PM CDT - 03/26/2025 11:59 PM CDT Hospital Encounter [facility] Building [address] [address] Encounter for screening for malignant neoplasm of cervix Discharge Disposition: Discharge to home or self care 03/26/2025 10:50 AM CDT Lab [facility] [address] [place] [id number] Screening examination for STD (sexually transmitted disease) 03/26/2025 10:30 AM CDT Office Visit [facility] Obstetrical Gynecology [address] [place] [phone] Ivett Ba MD Encounter for screening mammogram for malignant neoplasm of breast (Primary Dx); Encounter for screening colonoscopy; Screening examination for STD (sexually transmitted disease); Encounter for screening for malignant neoplasm of cervix; Family history of colon cancer 03/16/2025 2:00 PM CDT Clinical Support [facility] Obstetrical Gynecology [address] [place] [phone] Negative test (Primary Dx); Depo-Provera contraceptive status 03/08/2025 5:02 AM CDT - 03/08/2025 7:[address] [facility] Emergency Department [address] [place] [address] Ruddy Hankins Jr., MD Lumbar strain, initial encounter (Primary Dx); Muscle spasm Discharge Disposition: Discharge to home or self care from Last 3 Months Immunizations Immunization Administration Dates Next Due DTP 03/14/1991, 6,10/06/1985,06/30,04/21/1985 Influenza, Quadrivalent, Spl it, Intramuscular 05/11/2018,10/25/2017,05/11/2016,06/19 Influenza, Quadrivalent, Spl it, Preservative Free, Intramuscular 05/13/2021 Influenza, Trivalent, Preser vative Free, Intramuscular 06/01/2024 MMR 03/14/1991,04/21/1985 OPV 03/14/1991, 6,10/06/1985,06/30,04/21/1985 Surgical History Surgery Date Site/Laterality Comments SECTION 08/16/2004 - 08/15/2005 TUBAL LIGATION 12/14/2005 - 01/13/2006 SECTION Medical History Medical History Date Comments Hypertension Depression GERD (gastroesophageal reflux disease) Anxiety Arthritis Glaucoma Kidney stone Menstrual problem Family History Medical History Relation Name Comments Alcohol abuse Father Iker Norwood Drug abuse Father Iker Norwood Diabetes Maternal Grandmother Shelli Heart attack Maternal Grandmother Shelli Rashes / Skin problems Maternal Grandmother Shelli Stroke Maternal Grandmother Shelli COPD Mother Breanne Flaherty Heart disease Mother Breanne Flaherty Heart failure Mother Breanne Flaherty Hypertension Mother Breanne Flaherty Kidney disease Mother Breanne Flaherty Kidney failure Mother Breanne Flaherty Learning disabilities Son Sergei Banks III Breast cancer Neg Hx Colon cancer Neg Hx Ovarian cancer Neg Hx Uterine cancer Neg Hx Relation Name Status Comments Father Iker Norwood Alive Maternal Grandmother Shelli Mother Breanne Flaherty Son Sergei Banks III Social History Tobacco Use Types Packs/Day Years Used Date Smoking Tobacco: Every Day Cigarettes 0.5 20 Tobacco Cessation:Ready to Q uit: Not Asked; Counseling Given: Not Answered Alcohol Use Standard Drinks/Week Comments Never 0 [...] on file Legal Sex Female 6:16 PM [employer]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[employer] Gender Identity Not on file Sexual Orientation Not on file Obstetrics History Para Term AB IAB SAB Ectopic Multiple Livin g Live Births 4 3 3 1 3 Date Outcome GA Total Labor Labor/2nd/3rd Weight Sex Type Anes PTL Shelli A1 A5 Name Clin AB Term Term Term Comments x 2 CS x 1 = placental abruption, blood transfusions Last Filed Vital Signs Vital Sign Reading Time Taken Comments Blood Pressure 142/84 03/26/2025 10:08 AM CDT Pulse 73 03/08/2025 6:26 AM CDT Temperature 36.6 C (97.9 F) 03/08/2025 5:10 AM CDT Respiratory Rate 18 03/08/2025 6:00 AM CDT Oxygen Saturation 100% 03/08/2025 6:00 AM CDT Inhaled Oxygen Concentration - - Weight 55.5 kg (122 lb 6.4 oz) 03/26/2025 10:08 AM CDT Height 160 cm (5' 2.99) 03/26/2025 10:08 AM CDT Body Mass Index 21.69 03/26/2025 10:08 AM CDT Plan of Treatment Upcoming Encounters Date Type Department Care Team (Late st Contact Info) Description 04/18/2025 12:00 PM CDT Hospital Encounter [facility] GI Lab [address] [place] [address] Giuseppe Nathan MD [address] [place] [address] [place] [id number] 04/18/2025 12:00 PM CDT - 04/18/2025 12:30 PM CDT Surgery [facility] GI Lab [address] [place] [address] Giuseppe Nathan MD [address] [place] [address] COLONOSCOPY Scheduled Procedures Name Priority Associated Diagnoses Date/Ti me COLONOSCOPY Screening for colon cancer 04/18/2025 12:00 PM CDT Health Maintenance Due Date Last Done Comments Colon Cancer Screening-Colonoscopy 1980 Depression Screening 1980 Hepatitis B Screening 1997 Pneumococcal vaccine <65 (1 of 2 - PCV) 1998 DTaP/Tdap/Td Vaccine (6 - Tdap) 03/14/2001 03/14/1991, 06/15/1986, 10/06/1985, Additional history exists HPV Vaccines (1 - 3-dose SCD M series) 2006 Covid-19 Vaccine (3 - Pfizer risk series) 01/15/2021 12/18/2020, 11/27/2020 Breast Cancer Screening-Mammogram 04/10/2025 024 Influenza Vaccine (#1) 2025 , 05/13/2021, 05/11/2018, Additional history exists Cervical Cancer Screening 03/26/20262024, 03/26/2025, 03/21/2024, Additional history exists Regular Well Visit/Exam 18-64 03/26/2026, 03/21/2024, 02/23/2023 Hepatitis C Screening Completed 03/26/2025 , 12/07/2024, 12/22/2023, Additional history exists Procedures Procedure Name Priority Date/Time Associated Diagnosis Comments HIV 1/2 ANTIBODY PLUS P24 ANTIGEN Routine 03/26/2025 10:53 AM CDT Screening examination for STD (sexually transmitted disease) HEPATITIS B SURFACE ANTIGEN Routine 03/26/2025 10:53 AM CDT Screening examination for STD (sexually transmitted disease) HEPATITIS C ANTIBODY Routine 03/26/2025 10:53 AM CDT Screening examination for STD (sexually transmitted disease) RPR Routine 03/26/2025 10:53 AM CDT Screening examination for STD (sexually transmitted disease) PAP AND HIGH RISK HPV, REFLEX TO GENOTYPING Routine 03/26/2025 10:43 AM CDT Encounter for screening for malignant neoplasm of cervix HIGH RISK HPV DNA DETECTION WITH GENOTYPING Routine 03/26/2025 10:43 AM CDT Encounter for screening for malignant neoplasm of cervix POCT HCG, URINE Routine 03/16/2025 2:33 PM CDT Negative test XR SPINE THORACIC 3 VIEWS ED 03/07/2025 11:59 PM CDT XR SPINE LUMBAR 2 OR 3 VIEWS ED 03/07/2025 11:59 PM CDT DIAGNOSTIC MAMMOGRAM BILATERAL W MIGUELINA Schedule Routine, Read Routine (OP Routine) 04/10/2024 2:13 PM CDT Nipple discharge Breast lump on right side at 11 o'clock position from Last 3 Months or Most Recently Relevant to Health Maintenance Results * HIV 1/2 Antibody plus p24 Antigen Blood (03/26/2025 10:53 AM CDT) HIV 1/2 ab + p24 ag Nonreactive Nonreactive Comment:Nonreactive for HIV- 1 antigen and HIV-1/HIV-2 antibodies. No laboratory evidence of HIV infection. If acute HIV infection is suspected, consider testing for HIV-1 RNA. Current interpretive data was last revised on 22. Blood 03/26/2025 10:5 3 AM CDT 03/26/2025 2:34 PM CDT us Ivett Ba MD LAB MICROBIOLOGY - GENERAL ORDERABLES Final Result [facility] [address] [facility] Department [place] [address] * Hepatitis C antibody Blood (03/26/2025 10:53 AM CDT) Hep C Ab Nonreactive Nonreactive Comment: Antibodies to HCV not detected. Does NOT exclude the possibility of recent exposure to HCV. Current interpretive data was last revised on 22 Interpretive Data Nonreactive: Antibodies to HCV not detected. Does NOT exclude the possibility of recent exposure to HCV. Equivocal: Equivocal for HCV antibodies. Supplemental molecular testing will be automatically performed to determine infection status in accordance with current CDC screening recommendations. Reactive: Positive for HCV antibodies. This may represent current or past HCV infection. Supplemental molecular testing will be automatically performed to determine current infection status in accordance with current CDC screening recommendations. Interpretive data was last revised on 2019. Blood 03/26/2025 10:5 3 AM CDT 03/26/2025 2:34 PM CDT Ivett Ba MD LAB MICROBIOLOGY - GENERAL ORDERABLES Final Result Performing Organization Address City/[facility] Co de Phone Number [address] [place] [address] * RPR Blood (03/26/2025 10:53 AM CDT) Pathologist [facility] RPR Nonreactive Nonreactive Comment:Testing performed by : [facility], [address] [facility], [place]., [address] Blood 03/26/2025 10:5 3 AM CDT 03/26/2025 3:07 PM CDT Ivett Ba MD LAB MICROBIOLOGY - GENERAL ORDERABLES Final Result Performing Organization Address City/[facility] Co de Phone Number [address] [address] * Hepatitis B Surface Antigen Blood (03/26/2025 10:53 AM CDT) Pathologist [facility] HepBsAg Nonreactive Nonreactive Blood 03/26/2025 10:5 3 AM CDT 03/26/2025 2:34 PM CDT Ivett Ba MD LAB MICROBIOLOGY - GENERAL ORDERABLES Final Result Performing Organization Address City/[facility] Co de Phone Number [address] [place] [address] * (ABNORMAL) High Risk HPV DNA Detection with Genotyping (Molecular component) (03/26/2025 10:43 AM CDT) Pathologist [facility] HPV HR 16 Not Detected Not Detected [facility] Comment:Testing performed by : [facility], [address] [place]., [address] HPV HR 18 Detected(A) Not Detected [facility] Comment:Testing performed by : [facility], [address] [place]., [address] HPV HR Non 16/18 Detected(A) Not Detected [facility] LOPE[facility] Comment: Interpretive Data Nucleic acid amplification for detection of high-risk Human Papilloma virus (HPV) is performed by the Bradly Jan 6800 HPV test. This assay specifically detects HPV-16 and HPV-18 genotypes. The following HPV genotypes are detected as high-risk HPV: HPV-31, 33, 35, ,39, 45, 51, 52, 56, 58, 59, 66, and 68. This assay has been approved by the [place] Food and Drug Administration for detection of HPV in cervical specimens collected by a physician using an endocervical brush/spatula or cervical broom and placed in the ThinPrep Pap Test PreservCyt collection containers. The performance characteristics of this test have been verified by the [facility] Molecular Infectious Disease laboratory. Correlate with separately reported cytology results, as applicable. Interpretive data last revised 23 Testing performed by: [facility], [address] [place]., [address] Endocervical 03/26/2025 10:4 3 AM CDT 03/29/2025 9:34 AM CDT Narrative [facility] LOPEZ - 03/29/2025 8:38 PM CDT Clinical history and diagnosis->routine Number of vials->1 Testing type->Screening Last menstrual period (date if known)->Depo us Ivett Ba MD LAB BODY FLUIDS AND STOOLS ORDERABLES Final Result [facility]URKA LOPEZ [address] [facility] Department [place] [address] [facility] * (ABNORMAL) Pap and High Risk HPV and Genotyping (Cytology Component) (03/26/2025 10:43 AM CDT) Endocervical (Pap test) 03/26/2025 10:43 AM CDT 03/29/2025 2:00 AM CDT Narrative PATHOLOGY [facility] - 04/02/2025 5:36 PM CDT EPIC results best viewed via link to PDF [facility] [place] [address] Note to Patients: This report may contain a detailed description of human tissue sent by a health care provider to the laboratory for pathologic evaluation. The content of this report is essential for diagnosis and may provide important critical findings. This information may be unfamiliar to patients to review without a medical professional present. It is advised that the patient review this report in the presence of a health care provider who can answer questions and explain the details. CYTOPATHOLOGY REPORT FINAL Patient Name: CHELSEA BANKS Gender: F : 1980 (Age: 44) Address: [address] [place], [place] [phone] [facility] #: [id number] Service: DEFAULT Location: Patient Type: [facility] SPECIMEN Taken: 03/26/2025 Received: 03/29/2025 Accessioned: 03/29/2025 Reported: 04/02/2025 Physician(s): Shazia Ba M.D. FINAL INTERPRETATION SOURCE OF SPECIMEN Liquid based Thin Prep pap with HPV: STATEMENT OF ADEQUACY - Satisfactory for evaluation - Endocervical cells/transformation zone sample absent GENERAL CATEGORIZATION: - EPITHELIAL CELL ABNORMALITY INTERPRETATION: - Low grade squamous intraepithelial lesion Comments (Abnormal-Positive for High Risk HPV) HPV HR 16- NOT DETECTED HPV HR 18- DETECTED HPV HR NON 16/18- DETECTED Interpretive Data Nucleic acid amplification for detection of high-risk Human Papilloma virus (HPV) is performed by the Bradly Jan 6800 HPV test. This assay specifically detects HPV-16 and HPV-18 genotypes. The following HPV genotypes are detected as high-risk HPV: HPV-31, 33, 35, 39, 45, 51, 52, 56, 58, 59, 66, and 68. This assay has been approved by the [place] Food and Drug Administration for detection of HPV in cervical specimens collected by a physician using an endocervical brush/spatula or cervical broom and placed in the ThinPrep Pap Test PreservCyt collection containers. The performance characteristics of this test have been verified by the [facility] Molecular Infectious Disease laboratory. Correlate with reported cytology results, as applicable. Interpretive data last revised 23 pfm/04/02/2025 17:36 By this signature, I attest that the above diagnosis is based upon my personal examination of the slides(and/or other material indicated in the diagnosis). Ernesto Lang MD Report Electronically Reviewed and Signed Out By Ernesto Lang MD 04/02/2025 17:36:07 LIBRA Adams(ASCP) Cervicovaginal Cytology (Pap Test) Disclaimer: The Pap test is a screening test used to detect cervical cancer and its precursors; it is not a diagnostic procedure. False negative and false positive results do occur. Pap test results should be interpreted in the context of pertinent clinical information and biopsy results as indicated. [facility] Clinical Laboratory Improvement Amendments (CLIA) mandate that cytologic and histologic results be correlated for laboratory principal quality engineer & improvement standards. FOR ALL HIGH-GRADE CASES we request submission of follow-up histological material and/or reports that have not been previously provided so that we may fulfill said required standards. Gross Description A. Liquid based Thin Prep pap with HPV: Cervical/vaginal - Screening ThinPrep Clinical Diagnosis and History Last Menstrual Period: Depo The patient is a 44-year-old woman who presents for screening. Report Images and scanned documents, if included only viewable in PDF version The performance characteristics of some immunohistochemical stains, in-situ hybridization and fluorescence in-situ hybridization tests and immunophenotyping by flow cytometry cited in this report (if any) were determined by the Surgical Pathology Department at [facility] as part of an ongoing food quality tester program and in compliance with federally mandated regulations drawn from the Clinical Laboratory Improvement Act of 1988 (CLIA '88). Some of these tests rely on the use of analyte specific reagents and are subject to specific labeling requirements by the [place] Food and Drug Administration. Such diagnostic tests may only be performed in a facility that is certified by the Department of Health and Human Services as a high complexity laboratory under CLIA '88. The FDA has determined that such clearance or approval is not necessary. This test is used for clinical purposes. It should not be regarded as investigational or for research. Nevertheless, federal rules concerning the medical use of analyte specific reagents require that the following disclaimer be attached to the report: This test was developed and its performance characteristics determined by the Surgical Pathology Department of [facility]. It has not been cleared or approved by the U. S. Food and Drug Administration. Ivett Ba MD LAB CYTOLOGY ORDERABLES Fi nal Result PATHOLOGY [facility] * POCT hCG, urine (03/16/2025 2:33 PM CDT) HCG, ur, POC Negative Negative Lot Number [id number] QC Backgroud Clear Acceptable QC Control Line Acceptable Urine 03/16/2025 2:33 PM CDT Ivett Ba MD POINT OF CARE TEST ORDERAB LES Final Result * XR Spine Lumbar 2 or 3 Views (03/07/2025 11:59 PM CDT) Anatomical Region Laterality Modality Spine N/A Computed Radiogr aphy 03/08/2025 12:0 3 AM CDT Narrative 03/08/2025 12:03 AM CDT EXAM DESCRIPTION: XR SPINE LUMBAR 2 OR 3 VIEWS REASON FOR STUDY: pain Patient to triage with c/o 10/10 back pain/back spasms that started after being injured at work today. 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 TECHNIQUE: Three radiographic views of the lumbar spine. COMPARISON: Plain films of the lumbar spine of June 20, 2022. FINDINGS: ALIGNMENT: Anatomic. HARDWARE: None. VERTEBRAE: There are five lumbarized vertebral bodies. Vertebral bodies are normal in height. The facet joints articulate normally. The spinous processes are intact. DISCS: Disc heights are well maintained. SOFT TISSUES: No significant abnormalities seen. IMPRESSION: No acute spinal abnormality. THIS IS AN ELECTRONICALLY VERIFIED FINAL REPORT 03/08/2025 12:03 AM - Electronically signed by Lani Hudson M.D. SN: Report ID: [id number] Reading Location: [id number] Procedure Note Lani Hudson MD - 03/08/2025 EXAM DESCRIPTION: XR SPINE LUMBAR 2 OR 3 VIEWS REASON FOR STUDY: pain Patient to triage with c/o 10/10 back pain/back spasms that started after being injured at work today. 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 TECHNIQUE: Three radiographic views of the lumbar spine. COMPARISON: Plain films of the lumbar spine of June 20, 2022. FINDINGS: ALIGNMENT: Anatomic. HARDWARE: None. VERTEBRAE: There are five lumbarized vertebral bodies. Vertebralbodies are normal in height. The facet joints articulate normally. Thespinous processes are intact. DISCS: Disc heights are well maintained. SOFT TISSUES: No significant abnormalities seen. IMPRESSION: No acute spinal abnormality. THIS IS AN ELECTRONICALLY VERIFIED FINAL REPORT 03/08/2025 12:03 AM - Electronically signed by Lani Hudson M.D. SN: Report ID: [id number] Reading Location: [id number] Efrem Pitt NP IM XR PROCEDURES Final Result * XR Spine Thoracic 3 Vw (03/07/2025 11:59 PM CDT) Anatomical Region Laterality Modality Spine N/A Computed Radiogr aphy 03/08/2025 12:0 3 AM CDT Narrative 03/08/2025 12:04 AM CDT EXAM DESCRIPTION: XR SPINE THORACIC 3 VIEWS REASON FOR STUDY: injury Patient to triage with c/o 10/10 back pain/back spasms that started after being injured at work today. 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 TECHNIQUE: Three radiographic views of the thoracic spine. COMPARISON: Plain films of the thoracic spine of June 20, 2022. FINDINGS: ALIGNMENT: Anatomic. VERTEBRAE: Vertebral bodies are normal in height. The facet joints articulate normally. DISCS: Disc heights are well maintained. SOFT TISSUES: No significant abnormalities seen. IMPRESSION: No acute spinal abnormality. THIS IS AN ELECTRONICALLY VERIFIED FINAL REPORT 03/08/2025 12:04 AM - Electronically signed by Lani Hudson M.D. SN: SN Report ID: [id number] Reading Location: [id number] Procedure Note Lani Hudson MD - 03/08/2025 EXAM DESCRIPTION: XR SPINE THORACIC 3 VIEWS REASON FOR STUDY: injury Patient to triage with c/o 10/10 back pain/back spasms that started after being injured at work today. 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 TECHNIQUE: Three radiographic views of the thoracic spine. COMPARISON: Plain films of the thoracic spine of June 20, 2022. FINDINGS: ALIGNMENT: Anatomic. VERTEBRAE: Vertebral bodies are normal in height. The facet joints articulate normally. DISCS: Disc heights are well maintained. SOFT TISSUES: No significant abnormalities seen. IMPRESSION: No acute spinal abnormality. THIS IS AN ELECTRONICALLY VERIFIED FINAL REPORT 03/08/2025 12:04 AM - Electronically signed by Lani Hudson M.D. SN: SN Report ID: [id number] Reading Location: [id number] Efrem Pitt NP IMG XR PROCEDURES Final Result * DIAGNOSTIC MAMMOGRAM BILATERAL W MIGUELINA (04/10/2024 2:13 PM CDT) Anatomical Region Laterality Modality Breast Bilateral Mammography 04/10/2024 2:50 PM CDT Narrative 04/10/2024 2:56 PM CDT EXAM DESCRIPTION: US BREAST BILATERAL LIMITED; DIAGNOSTIC MAMMOGRAM BILATERAL W MIGUELINA REASON FOR STUDY: 43-year-old female presents for evaluation of intermittent foul-smelling bilateral nipple discharge for the past 6 months. She describes this nipple discharge as being light brown in color. Chronic bilateral nipple inversion. COMPARISON: Outside mammograms dated 11/30/2022, 03/07/2021, 01/15/2020 TECHNIQUE: CC and MLO views of the bilateral breasts were obtained with digital technique using breast tomosynthesis with C view. Limited grayscale ultrasound of the bilateral breasts was performed. FINDINGS: DENSITY: The breasts are heterogeneously dense, which may obscure small masses. MAMMOGRAM FINDINGS: There are 2 unchanged biopsy marking clips in the left breast. No suspicious masses, suspicious calcifications, or other suspicious findings are seen in either breast. There is no new suspicious finding in either breast on mammogram. ULTRASOUND FINDINGS: Targeted ultrasound of the bilateral breasts subareolar areas demonstrates no ductal dilatation, solid or cystic mass, or other suspicious finding. During ultrasound examination, the patient reports an area of pain in the right breast at the 11 o'clock position. Targeted ultrasound at this location reveals only normal tissue with no suspicious finding. IMPRESSION: 1. No suspicious finding on either mammogram or ultrasound to account for the patient's chronic bilateral intermittent (foul-smelling, light brown) nipple discharge. In discussion with patient, she notes that this culture of this discharge has previously been performed, which reportedly demonstrated no bacterial growth. She also states having had her serum prolactin level checked, which was normal as well. Clinical follow-up is recommended. Any further evaluation should be based on clinical grounds. If this nipple discharge continues, surgical consultation could be considered. 2. No suspicious finding on either mammogram or ultrasound at the right breast area of pain (11 o'clock). Clinical follow-up is recommended. 3. No evidence of malignancy in either breast on mammogram (or targeted subareolar ultrasound). Screening mammogram in 1 year is recommended. BIRADS 1 - Negative I discussed these findings and recommendations with the patient at the time of the examination. 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
== END 2025-04-04 17:13 | disposition home or self-care (01) ==
PROVIDERS: PCP Family Medicine; Visit Provider Nurse Practitioner Family
DX: N20.0 Calculus of kidney (principal)
CPT/HCPCS: 74018

== ENCOUNTER 2025-04-23 11:28 | Outpatient (CLI) | payer OTHER, SELFPAY ==
--- NOTE | ~2025-04-23 | XR_ITS ---
Examination: XR thoracic spine 3V Clinical History: OTHER LBP;MUSCLE SPASM OF BACK, BACK PAIN Comparison: None Technique: 2 views lumbar spine 3 films Findings: No fracture. No listhesis. No significant degenerative changes. Visualized heart and lungs unremarkable. IMPRESSION: 1. No acute abnormality. Reviewed, dictated and finalized at location R. IMPRESSION: 1. No acute abnormality.
--- NOTE | ~2025-04-23 | XR_ITS ---
Lumbar spine series Indication: Back pain Comparison: CT lumbar spine 09/17/2022 Technique: 3 views lumbar spine Findings: 5 nonrib-bearing lumbar-type vertebral bodies. No acute fracture. No listhesis. Vertebral bodies normal height. Disc spaces maintained. Mild degenerative changes. SI joints congruent. Sacrum intact. IMPRESSION: 1. No acute findings. Reviewed, dictated and finalized at location R. IMPRESSION: 1. No acute findings.
--- OUTSIDE RECORDS SUMMARY | 2025-04-23 11:58 | XMS_ITS | Encounter Summary ---
Author Organization [facility] Healthcare Address [address] [place] [address] Care Team Providers Care Financial Business Analyst Name Role Phone Johan Rodriguez MD Unavailable [phone] Johan Rodriguez MD Primary Care Provider [phone] Encounter Details Date Type Department Care Team (Late st Contact Info) Description 03/27/2025 Results Follow-Up [facility] Obstetrical Gynecology [address] [phone] Ivett Ba MD [facility] [address] [facility] Blood, Hepatitis C antibody [...] on file Legal Sex Female 6:16 PM [employer] Gender Identity Not on file Sexual Orientation Not on file documented as of this encounter Plan of Treatment Not on file documented as of this encounter Visit Diagnoses Not on filedocumented in this encounter Care Teams Financial Business Analyst Relationship Specialty Start Date End Date Johan Rodriguez MD [address] [address] [place] [address] [place] [id number] PCP - General Family Medicine 12/09/23 Johan Rodriguez MD Family Medicine 12/10/22 documented as of this encounter
--- OUTSIDE RECORDS SUMMARY | 2025-04-23 11:58 | XMS_ITS | Clinical Summary ---
Author Organization [facility] at the Medical Office Building Address [address] [place] [address] Care Team Providers Care Marine Oiler Name Role Phone Johan Rodriguez MD Unavailable [phone] Johan Rodriguez MD Primary Care Provider [phone] Allergies Active Allergy Reactions Criticality Noted Date [...] and vomiting. 2 tablet 03/29/20 25 Active medroxyPROGESTE Dinh (Depo-Provera) 150 mg/mL injection Inject 1 mL (150 mg total) into the muscle as instructed every 3 (three) months 1 mL 3 07/05/20 24 025 Discontinu ed(Reorder ) polyethylene glycol (GoLYTELY) 236-22.74-6.74 -5.86 gram solutionIndicat ions:Screening for colon cancer Take 4,000 mL by mouth once for 1 dose 4000 mL 03/29/20 25 025 Active Problems Problem Noted Date Diagnosed Date [...] Encounters Date Type Department Care Team Description 04/18/2025 12:15 PM CDT Anesthesia Event [facility] GI Lab [address] [place] [address] Ankur Cedeño, Jason Vargas CRNA 04/18/2025 12:00 PM CDT - 04/18/2025 12:30 PM CDT Surgery [facility] [address] [place] [address] Giuseppe Nathan MD COLON REMOVAL SNARE 04/18/2025 10:50 AM CDT - 04/18/2025 1:20 PM CDT Hospital Encounter [facility] GI Lab [address] [place] [address] Giuseppe Nathan MD Screening for colon cancer Discharge Disposition: Discharge to home or self care 03/30/2025 Telephone [facility] Cardiology [address] [facility] [address] [place] [phone] Adam Toscano MD 03/29/2025 Orders Only [facility] Gastroenterology at [place] [id number] [facility] [address] [place] [address] Giuseppe Nathan MD Screening for colon cancer (Primary Dx); Nausea and vomiting, unspecified vomiting type 03/27/2025 Results Follow-Up [facility] Obstetrical Gynecology [address] [place] [phone] Ivett Ba MD RPR Blood, Hepatitis C antibody Blood, Hepatitis B Surface Antigen Blood, Additional followed-up results: 3 03/26/2025 12:11 PM CDT - 03/26/2025 11:59 PM CDT Hospital Encounter [facility] Office Building [address] [place] [address] Encounter for screening for malignant neoplasm of cervix Discharge Disposition: Discharge to home or self care 03/26/2025 10:50 AM CDT Lab [facility] Office Building [address] [place] [phone] Screening examination for STD (sexually transmitted disease) 03/26/2025 10:30 AM CDT Office Visit [facility] Obstetrical Gynecology [address] [place] [address] [phone] Ivett Ba MD Encounter for screening mammogram for malignant neoplasm of breast (Primary Dx); Encounter for screening colonoscopy; Screening examination for STD (sexually transmitted disease); Encounter for screening for malignant neoplasm of cervix; Family history of colon cancer 03/16/2025 2:00 PM CDT Clinical Support [facility] Obstetrical Gynecology [address] [place] [address] [phone] Negative test (Primary Dx); Depo-Provera contraceptive status 03/08/2025 5:02 AM CDT - 03/08/2025 7:10 AM CDT Emergency [facility] Emergency Department [address] [place] [address] Ruddy Hankins Jr., MD Lumbar strain, initial [...] Anxiety Arthritis Glaucoma Kidney stone Menstrual problem Hyperlipidemia Asthma Appetite absent Family History Medical History Relation Name Comments Alcohol abuse Father Iker Norwood Drug abuse Father Iker Norwood Colon cancer Father's Sister Diabetes Maternal Grandmother Shelli Heart attack Maternal Grandmother Shelli Rashes / Skin problems Maternal Grandmother Shelli Stroke Maternal Grandmother Shelli COPD Mother Breanne Flaherty Heart disease Mother Breanne Flaherty Heart failure Mother Breanne Flaherty Hypertension Mother Breanne Krystina Kidney disease Mother Breanne Krystina Kidney failure Mother Breanne Flaherty Colon cancer Paternal Grandmother Colon cancer Sister Learning disabilities Zeferino Banks III Breast cancer Neg Hx Ovarian cancer Neg Hx Uterine cancer Neg Hx Relation Name Status Comments Father Iker Norwood Alive Father's Sister Maternal Grandmother Shelli Mother Breanne Flaherty Paternal Grandmother Sister Son Sergei Banks III Social History Tobacco Use Types Packs/Day Years Used Date Smoking Tobacco: Every Day Cigarettes 0.5 20 Tobacco Cessation:Ready to Q uit: Not Asked; Counseling Given: Not Answered Alcohol Use Standard Drinks/Week Comments Yes 0 (1 standard drink = 0.6 oz pur e alcohol) AUDIT-C Answer Date Recorded Q1: How often do you have a drink containing alc ohol? Monthly or less 04/18/2025 Q2: How many drinks containi ng alcohol do you have on a typical day when you are drinking? 1 or 2 04/18/2025 Q3: How often do you have si x or more drinks on one occasion? Never 04/18/2025 Personal Safety Answer Date Recorded Have you ever been in or are you currently in a harmful physical or emotional relationship or is someone making you feel afraid or unsafe? 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..] 03/21/2024, Additional history exists Regular Well Visit/Exam 18-03/26/2026, 03/21/2024, 02/23/2023 Colon Cancer Screening-Colonoscopy 04/18/20352024 Hepatitis C Screening Completed 03/26/2025 , 12/07/2024, 12/22/2023, Additional history exists Procedures Procedure Name Priority Date/Time Associated Diagnosis Comments SURGICAL PATHOLOGY Routine 04/18/2025 12 :24 PM CDT Screening for colon cancer COLON REMOVAL SNARE 04/18/2025 1 2:15 PM CDT Screening for colon cancer COLONOSCOPY 04/18/2025 12:10 PM CDT POCT CREATININE FOR CONTRAST EVALUATION Routine 04/18/2025 11:58 AM CDT POC BLOOD GAS AND CHEMISTRIES, VENOUS Routine 04/18/2025 11:57 AM CDT HIV 1/2 ANTIBODY PLUS P24 ANTIGEN Routine [...] Recently Relevant to Health Maintenance Results * Surgical pathology (04/18/2025 12:24 PM CDT) Tissue (Polyp(s), colon/colorectal, esophageal, gastric) 04/18/2025 12:24 PM CDT Comment:Cold snare Tissue specimen (specimen) (Polyp(s), colon/colorectal, esophageal, gastric) 04/18/2025 12:28 PM CDT Comment:Cold snare Narrative PATHOLOGY [facility] - 04/19/2025 2:46 PM CDT [facility] Department of Pathology [address] [place] [address] Note to Patients: This report may contain [...] can answer questions and explain the details. Final Report Patient Name: CHELSEA BANKS : 1980 (Age: 44) Gender: F Address: [address] [place] [address] [address], [place] [address] Hospital #: [id number] Service: Gastro Location: Patient Type: [facility] OUTPATIENT Taken: 04/18/2025 Received: 04/18/2025 Accessioned: 04/18/2025 Reported: 04/19/2025 Physician(s): MD Johan Padilla M.D. Diagnosis: A. Large bowel, transverse colon polyp biopsy: - Fragments of tubular adenoma(s) B. Large bowel, cecal polyp biopsy: - Fragments of tubular adenoma(s) Damien Gregory MD PhD Report Electronically Reviewed and Signed Out By Damien Gregory MD PhD 04/19/2025 14:46:56 Specimen(s) Received: A: Transverse colon polyp cold snare x 1 B: Cecal polyp cold snare x 1 Microscopic Description: Unless gross-only is specified, the final diagnosis for each specimen is based on a microscopic examination of each tissue sample. Clinical History: The patient is a 44-year-old woman presenting for colon cancer screening. Operative procedure: Colonoscopy with biopsy. Gross Description Received in two formalin jars labeled with the patient's identifiers. A. Labeled transverse colon polyp cold snare x1 and consists of four clemons tissue fragments admixed with debris, ranging from 0.1-0.2 cm. Entirely submitted. Labeled A1. Jar 0. B. Labeled cecal polyp cold snare x1 and consists of multiple clemons-pink, disrupted tissue fragments admixed with debris, measuring 2.2 x 1.5 x 0.5 cm in aggregate. Entirely submitted. Labeled B1 to B2. Jar 0. jjmhb/04/18/2025 15:13 ROSS Johnson, PA [facility] Microscopic slide review and interpretation for this case was performed at [facility], Department of Surgical Pathology, [address] [facility], [place] [address] [place] [id number] # [id number] us Giuseppe Nathan MD LAB PATHOLOGY ORDERABLES Final Result PATHOLOGY [facility] * Colonoscopy (04/18/2025 12:10 PM CDT) Anatomical Region Laterality Modality Other Narrative Procedure Note Giuseppe Nathan MD - 04/18/2025 12:10 PM CDT [facility] GI ENDOSCOPY Patient Name: Chelsea Banks Procedure Date: 04/18/2025 12:10 PM Date of : 1980 Admit Type: Outpatient Age: 44 Gender: Female Attending MD: Giuseppe Nathan M.D., Room: [facility] ENDOSCOPY ROOM 04 Note Status: Finalized Procedure: Colonoscopy Indications: Screening for colon cancer: Family history of colorectal cancer - increased risk. Referring MD: Providers: Giuseppe Nathan M.D. Medicines: See the Anesthesia note for documentation of the administered medications Complications: No immediate complications. Estimated Blood Loss: Estimated blood loss was minimal. Procedure: Pre-Anesthesia Assessment: - Prior to the procedure, a History and Physicalwas performed, and patient medications and allergieswere reviewed. The risks and benefits of the procedureand the sedation options and risks were discussed withthe patient. All questions were answered and informed consent was obtained. Patient identification and proposed procedure were verified. After reviewingthe risks and benefits, the patient was deemed in satisfactory condition to undergo the procedure.The anesthesia plan was to use monitored anesthesiacare (MAC). Immediately prior to administration of medications, the patient was re-assessed foradequacy to receive sedatives. The heart rate, respiratory rate, oxygen saturations, blood pressure, adequacyof pulmonary ventilation, and response to care were monitored throughout the procedure. The physical status of the patient was re-assessed after the procedure. The benefits, risks and alternatives of theprocedure and sedation were discussed and informed consentwas obtained. All questions were answered. Please referto the signed informed consent document in the medical record. The scope was passed under direct vision.The [id number]-[id number] colonoscope was introduced through theanus and advanced to the cecum, identified byappendiceal orifice and ileocecal valve. The colonoscopy was performed without difficulty. The patient tolerated the procedure well. The quality of the bowel preparation was good. Scope insertion time was 7 minutes. Scope withdrawal time was 14 minutes. Prep was administered in a split dose. Findings: The perianal and digital rectal examinations were normal. A 15 mm polyp was found in the cecum. The polyp was sessile. Thepolyp was removed with a cold snare. Resection (piecemeal) and retrievalwere complete. A 6 mm polyp was found in the transverse colon. The polyp wassessile. The polyp was removed with a cold snare. Resection and retrieval were complete. Internal hemorrhoids were found. The hemorrhoids were small. Impression: - One 15 mm polyp in the cecum, removed with a cold snare. Resected and retrieved. - One 6 mm polyp in the transverse colon, removedwith a cold snare. Resected and retrieved. - Internal hemorrhoids. Recommendation: - Await pathology results. - Resume previous diet today. - Discharge patient to home. - Patient has a contact number available for emergencies. The signs and symptoms of potential delayed complications were discussed with thepatient. Return to normal activities tomorrow. Written discharge instructions were provided to thepatient. - Repeat colonoscopy in 3 years for surveillance. - I would be happy to see you in my GI clinic ifyou have further questions or concerns or if symptoms progress Giuseppe Nathan M.D. 04/18/2025 12:46:02 PM Number of Addenda: 0 Note Initiated On: 04/18/2025 12:10 PM Recognized by the [employer] for promoting quality in endoscopy Giuseppe Nathan MD ENDOSCOPY PROCEDURES Padmini l Result * POCT creatinine for contrast evaluation (04/18/2025 11:58 AM CDT) Pathologist [facility] Creatinine POC 1.00 0.60 - 1.10 mg/dL Blood 04/18/2025 11:5 8 AM CDT 04/18/2025 11:58 AM CDT Giuseppe Nathan MD POINT OF CARE TEST ORDERA BLES Final Result [facility] [address] [facility] Department [place] [address] * (ABNORMAL) POC Blood Gas and Chemistries, Venous - (04/18/2025 11:57 AM CDT) Pathologist [facility] pH,berta POC 7.41 7.32 - 7.43 pCO2, berta POC 38(L) 40 - 50 mmHg [facility] pO2,berta POC 14 mmHg [facility] Comment: Interpretive Data No reference range established. Current interpretive data was last revised 2020. HCO3, berta (Calc) POC 24 20 - 30 mmol/L [facility] Base excess, berta POC 0 mmol/L [facility] Comment: Interpretive Data No reference range established. Current interpretive data was last revised 2020. Hemoglobin, berta POC 14.3 11.9 - 15.5 g/dL [facility] Hematocrit, berta POC 42.0 35.6 - 45.5 % [facility] Sodium, berta POC 139 135 - 145 mmol/L [facility] Potassium, berta POC 4.0 3.3 - 4.9 mmol/L [facility] Comment: Interpretive Data This method is not able to assess for hemolysis, which may falsely increase potassium concentrations. If further testing is needed to evaluate this result, consider in-laboratory plasma potassium. Current Interpretive Data was last revised on 2022. Glucose, berta POC 87 70 - 199 mg/dL [facility] Ionized Calcium, berta POC 5.40(H) 4.50 - 5.10 mg/dL [facility] Blood 04/18/2025 11:5 7 AM CDT 04/18/2025 11:57 AM CDT Giuseppe Nathan MD LAB POCT ORDERABLES - DEV ICE Final Result Performing Organization Address [facility] Co de Phone Number [address] [place] [address] * HIV 1/2 Antibody plus p24 Antigen [...] GENERAL ORDERABLES Final Result Performing Organization Address City/[facility]/ZIP Co de Phone Number [facility] [address] [facility] [place] [address] * Hepatitis C antibody Blood (03/26/2025 10:53 [...] GENERAL ORDERABLES Final Result Performing Organization Address [facility] de Phone Number [address] [place] [address] * RPR Blood (03/26/2025 10:53 AM CDT) RPR Nonreactive Nonreactive Comment:Testing performed by : [facility], [address] [facility], [place]., [address] Blood 03/26/2025 10:5 3 AM CDT 03/26/2025 3:07 PM CDT Ivett Ba MD LAB MICROBIOLOGY - GENERAL ORDERABLES Final Result Performing Organization Address City/[facility] Co de Phone Number [address] [place] [address] * Hepatitis B Surface Antigen Blood (03/26/2025 10:53 AM CDT) HepBsAg Nonreactive Nonreactive Blood 03/26/2025 10:5 3 AM CDT 03/26/2025 2:34 PM CDT Ivett Ba MD LAB MICROBIOLOGY - GENERAL ORDERABLES Final Result [facility] [address] [facility] Department [place] [address] * (ABNORMAL) High Risk HPV DNA Detection with Genotyping (Molecular component) (03/26/2025 10:43 AM CDT) HPV HR 16 Not Detected Not Detected [facility] Comment:Testing performed by : [facility], [address] [place]., [address] HPV HR 18 Detected(A) Not Detected [facility] Comment:Testing performed by : [facility], [address] [facility], [address] HPV HR Non 16/18 Detected(A) Not Detected [facility] Comment: Interpretive Data Nucleic acid amplification for [...] this test have been verified by the [facility] Molecular Infectious Disease laboratory. Correlate with separately reported cytology results, as applicable. Interpretive data last revised 23 Testing performed by: [facility], [address] [place]., [address] Endocervical 03/26/2025 10:4 3 AM CDT 03/29/2025 9:34 AM CDT Narrative [facility] - 03/29/2025 8:38 PM CDT Clinical history and diagnosis->routine Number of vials->1 Testing type->Screening Last menstrual period (date if known)->Depo us Ivett Ba MD LAB BODY FLUIDS AND STOOLS ORDERABLES Final Result [facility] [address] [facility] Department [place] [address] [facility] * (ABNORMAL) Pap and High Risk HPV and Genotyping (Cytology Component) (03/26/2025 10:43 AM CDT) Endocervical (Pap test) 03/26/2025 10:43 AM CDT 03/29/2025 2:00 AM CDT Narrative PATHOLOGY [facility] - 04/02/2025 5:36 PM CDT EPIC results best viewed via link to PDF [facility] Ellen Fonseca Laboratory [place] [address] Note to Patients: This report may contain [...] Gender: F : 1980 (Age: 44) Address: [address] [place] [phone] Hospital #: [id number] Service: DEFAULT Location: Patient Type: [facility] SPECIMEN Taken: 03/26/2025 Received: 03/29/2025 Accessioned: 03/29/2025 [...] this test have been verified by the [facility] Molecular Infectious Disease laboratory. Correlate with reported cytology results, as applicable. Interpretive data last revised 23 pf/04/02/2025 17:36 By this signature, I attest that the above diagnosis is based upon my personal examination of the slides(and/or other material indicated in the diagnosis). Ernesto Lang MD Report Electronically Reviewed and Signed Out By Ernesto Lang MD 04/02/2025 17:36:07 Becky Harrington, LIBRA(ASCP) Cervicovaginal Cytology (Pap Test) Disclaimer: The Pap test is a screening test used to detect cervical cancer and its precursors; it is not a diagnostic procedure. False negative and false positive results do occur. Pap test results should be interpreted in the context of pertinent clinical information and biopsy results as indicated. [facility] Clinical Laboratory Improvement Amendments (CLIA) mandate that cytologic and histologic results be correlated for laboratory senior quality assurance engineer & improvement standards. FOR ALL HIGH-GRADE [...] determined by the Surgical Pathology Department at [facility] as part of an ongoing automotive quality manager program and in compliance with federally mandated [...] determined by the Surgical Pathology Department of [facility]. It has not been cleared or approved by the U. S. Food and Drug Administration. Ivett aB MD LAB CYTOLOGY ORDERABLES Fi nal Result PATHOLOGY [facility] * POCT hCG, urine (03/16/2025 2:33 [...] Lani Hudson M.D. SN: SN Report ID: [id number] Reading Location: [id number] Procedure Note Lani Hudson MD - 03/08/2025 [...] Lani Hudson M.D. SN: SN Report ID: [id number] Reading Location: [id number] Efrem Pitt NP IM XR PROCEDURES Final [...] Lani Hudson M.D. SN: SN Report ID: [id number] Reading Location: [id number] Procedure Note Lani Hudson MD - 03/08/2025 [...] Lani Hudson M.D. SN: SN Report ID: [id number] Reading Location: [id number] Kamal Yoandy FIRE DEPARTMENT MARINE ENGINEER IMG XR PROCEDURES Final Result * DIAGNOSTIC [...] PM - Electronically signed by Bhanu Munoz M.D. 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
== END 2025-04-23 11:29 | disposition home or self-care (01) ==
PROVIDERS: PCP Family Medicine; Visit Provider Nurse Practitioner Family
DX: M54.59 Other low back pain (principal); M62.830 Muscle spasm of back
CPT/HCPCS: 72072; 72100